=== PATIENT | female | born 1975 | race Caucasian/White ===

== ENCOUNTER → 2016-08-09 | Outpatient (CLI) | payer BC ==
--- NOTE | 2016-08-09 14:17 | MAMMOGRAPHY REPORT ---
BILATERAL DIGITAL SCREENING MAMMOGRAM WITH CAD: 08/09/2016 CLINICAL HISTORY: Patient presents for routine screening. S/P bilateral augmentation. TECHNIQUE: Current study was also evaluated with a Computer Aided Detection (CAD) system. Bilatera l CC and MLO views including implantviews were obtained. COMPARISON: Comparison is made to exams dated: 07/29/2013 mammogram, 06/05/2012 mammogram - [facility], 12/10/2011 mammogram, 10/08/2011 mammogram, and 10/05/2011 mammogram. BREAST COMPOSITION: The tissue of both breasts is heterogeneously dense, which may obscure small ma sses. FINDINGS: No suspicious masses, calcifications, or areas of architectural distortion are noted in e ither breast. There has been no significant interval change compared to prior exams. Bilateral subp ectoral saline implants are again noted. Asymmetry in the right superior breast on the MLO view is stable compared to prior exams. Bilateral benign-appearing calcifications are again noted. IMPRESSION: ACR BI-RADS CATEGORY 2: BENIGN There is no mammographic evidence of malignancy. A 1 year screening mammogram is recommended. The p atient will receive written notification of the results. Approximately 10% of breast cancers are not detected with mammography. A negative mammographic repor t should not delay biopsy if a clinically suggestive mass is present. Yvonne Hatch M.D. ah/:08/09/2016 12:47:21 Masticator: James SANTOS)(Pia), [facility] letter sent: Normal 1/2 BI-RADS Code: ACR BI-RADS Category 2: Benign
== END | disposition home or self-care (01) ==
LOC: C.MAMM 10:28
PROVIDERS: ATTEND Family Medicine
DX: Z12.31 Encounter for screening mammogram for malignant neoplasm of breast (principal); Z98.82 Breast implant status

== ENCOUNTER → 2017-03-14 | Outpatient (CLI) | payer BC ==
[~2017-03-14] MED LIST: MAGN250T22 PO
--- NOTE | 2017-03-14 11:52 | DIAGNOSTIC IMAGING REPORT ---
TRANSVAG-FEMALE PELVIS CLINICAL HISTORY: Pelvic pain. COMPARISON STUDY: No previous studies for comparison. FINDINGS: The uterus measures 10.3 x 5.4 x 6.6 cm. Endometrium measures 1.6 cm in thickness. Several nabothian cysts are incidentally noted. The right ovary measures 3 x 2.3 x 2.6 cm and contains a 1.6 cm complex cyst. The left ovary measures 3.3 x 1.8 x 2.3 cm. Color flow is identified within each ovary. There is trace free fluid within the pelvis. IMPRESSION: 1. 1.6 cm complex hypoechoic right ovarian lesion which could reflect a corpus luteal/hemorrhagic cyst. 2. No sonographic evidence of ovarian torsion. 3. Prominent endometrium, measuring 1.6 cm which could be correlated with the phase of menstrual cycle. 4. Trace fluid within pelvis which is likely physiologic. Electronically signed by: Cem Mueller M.D. 03/14/2017 11:50 AM Dictated Date/Time: 03/14/2017 11:47 AM
== END | disposition home or self-care (01) ==
LOC: C.ULTR 10:33
PROVIDERS: ATTEND Family Medicine
DX: R10.2 Pelvic and perineal pain (principal)

== ENCOUNTER → 2017-03-15 | Outpatient (CLI) | payer BC ==
[~2017-03-15] MED LIST changes: +OPTIRAY 300 IV PRN
--- NOTE | 2017-03-15 14:25 | DIAGNOSTIC IMAGING REPORT ---
IVP W/OR W/O TOMOGRAMS CLINICAL HISTORY: URINARY Frequency, pain COMPARISON STUDY: None. FINDINGS: [employer] image shows no renal, ureteral, or bladder calculi. Punctate calcification within the right deep pelvis is consistent with a phlebolith. Prior cholecystectomy. Moderate well-formed stool throughout the colon. Following the intravenous administration of contrast there is prompt and symmetric perfusion of the kidneys. The kidneys are normal in size and shape. No hydronephrosis. No suspicious filling defects seen within the opacified bilateral renal collecting systems, ureters, or bladder. No significant post void residual. IMPRESSION: Intravenous pyelogram within normal limits. Electronically signed by: Ryan Arciniega M.D. 03/15/2017 2:23 PM Dictated Date/Time: 03/15/2017 2:20 PM
== END | disposition home or self-care (01) ==
LOC: C.RAD 12:35
PROVIDERS: ATTEND Family Medicine
DX: R35.0 Frequency of micturition (principal); R39.89 Other symptoms and signs involving the genitourinary system

== ENCOUNTER → 2017-03-19 | Outpatient (CLI) | payer BC ==
[~2017-03-19] MED LIST changes: -OPTIRAY 300 IV PRN
== END | disposition home or self-care (01) ==
LOC: C.PAPS 08:35
PROVIDERS: ATTEND Physician Assistant
DX: Z01.419 Encounter for gynecological examination (general) (routine) without abnormal findings (principal)

== ENCOUNTER 2017-04-25 02:40 | Emergency (ER) | payer BC ==
[~2017-04-25] VITALS: Ht 157.5 cm; Wt 59.7 kg
[2017-04-25 02:43] VITALS: TEMP 36.4; Ht 157.5 cm; Wt 59.7 kg
[2017-04-25] MEDS ORDERED: KETOROLAC TROMETHAMINE 60 MG/2 ML VIAL IM STA (02:59)
[2017-04-25] MEDS ORDERED: MAGN250T22 PO (03:02)
--- NOTE | 2017-04-25 03:39 | EMERGENCY ROOM VISIT NOTE ---
History First contact with patient: 02:53 Chief Complaint: HEADACHE Stated Complaint: MIGRAINE History of Present Illness The patient is a 42 year old female who presents to the Emergency Room with complaints of a migraine headache which started yesterday. The patient states that she has hormone-induced migraines which occur every month on either the first or last day of her menstrual period. She states that she is not able to take NSAIDs orally due to a history of ulcers and typically sees her primary care provider for an injection of Toradol, which completely relieved her headache. She states that the headache started before bed and woke her up in the middle of the night. She rates her discomfort a 9/10. She states this is similar to previous migraines she has had. It is not the worst headache of her life. She denies any associated vomiting, numbness/weakness, blurred vision or slurred speech. She denies any recent illness or fevers/chills. Review of Systems A complete 10 point review of systems was reviewed with the patient with pertinent positives and negatives as per history of present illness. All else were negative. Social History Smoking Status: Never Smoker Marital Status: Housing Status: lives with family Occupation Status: employed Current/Historical Medications Scheduled Magnesium Oxide (Magnesium), 250 MG PO DAILY Physical Exam Vital Signs Date Time Temp Pulse Resp B/P (MAP) Pulse Ox O2 Delivery O2 Flow Rate FiO2 04/25/17 03:48 69 20 100/70 99 04/25/17 02:43 36.4 89 18 122/82 100 Room Air Physical Exam VITALS: Vitals are noted on the nurse's note and reviewed by myself. Vital signs stable. GENERAL: This is a 42-year-old female, in no acute distress, nondiaphoretic, well-developed well-nourished. HEAD: Normocephalic atraumatic. EARS: External auditory canals clear, tympanic membranes pearly schumacher without erythema or effusion bilaterally. EYES: Pupils equal round and reactive to light and accommodation. Conjunctivae without injection, sclerae without icterus. Extraocular movements intact. MOUTH: Mucous membranes moist. Tonsils are not enlarged. Pharynx without erythema or exudate. NECK: Supple without nuchal rigidity. No lymphadenopathy. HEART: Regular rate and rhythm without murmurs gallops or rubs. LUNGS: Clear to auscultation bilaterally without wheezes, rales or rhonchi. ABDOMEN: Soft, nontender. MUSCULOSKELETAL: Full range of motion throughout. Strength 5/5 throughout. NEURO: Patient was alert and oriented to person place and time. Normal sensation to light and sharp touch. No focal neurological deficits. Medical Decision & Procedures Medications Administered Medications (Trade) Dose Ordered Sig/Ramon Route Start Time Stop Time Status Last Admin Dose Admin Ketorolac Tromethamine (Toradol Inj) 60 mg NOW STAT IM 04/25/17 02:59 04/25/17 03:00 DC 04/25/17 03:27 60 MG Medical Decision The differential diagnosis includes acute intracranial bleed, meningitis, encephalitis, mass or mass effect, sinusitis, infection, tumor, headache, temporal arteritis and carbon monoxide exposure, and migraine. The patient was evaluated as above. She presents complaining of a headache which feels similar to previous headaches she has had in the past. She states she has these headaches every month when she has her menstrual period. She denies any new/concerning symptoms. She is given 60 mg Toradol IM with significant improvement of her headache and requested discharge home. The patient will follow-up with her primary care provider as needed. She verbalized understanding of my assessment and treatment plan was discharged home in good condition. Medication Reconcilliation Current Medication List: was personally reviewed by or Blood Pressure Screening Patient's blood pressure: Normal blood pressure Impression Primary Impression: Headache Departure Information Referrals Stan Brasher DO (PCP) Patient Instructions My [facility] Additional Instructions You have been treated in the Emergency Department for a Headache. For pain control, you can use the following [id number] medicines (if >12 yo): - Regular strength (325mg/tab) Tylenol (acetaminophen) 2 tabs every 4-6 hours as needed. Do not exceed 12 tablets in a 24 hour period. Avoid taking more than 4 grams (4000 mg) of Tylenol per day. This includes any other sources of acetaminophen you may take on a regular basis. - Regular strength (200 mg/tab) Advil (ibuprofen) 1-2 tabs every 4-6 hours as needed. Do not exceed a dose of 3200 mg per day. Follow-up with your primary care provider for further evaluation. Return to the Emergency Department if your current symptoms worsen despite treatment course outlined above, or if you develop any of the following symptoms : intractable pain despite aforementioned treatment course, visual disturbances , loss of vision, unilateral weakness or facial drooping, slurring of speech, loss of coordination, or loss of consciousness.
[2017-04-25 03:48] VITALS: BP 100/70; PULSE 69; O2SAT 99
== END 2017-04-25 03:49 | disposition home or self-care (01) ==
LOC: C.EDB 02:41
DX: R51 Headache (principal)

== ENCOUNTER 2018-10-28 16:31 | Observation (INO) ==
[2018-10-28] MEDS ORDERED: MoRPHine SULFATE 4 MG/ML 1 ML CARP\\VIAL IV STA (16:53)
[2018-10-28] MEDS ORDERED: ONDANSETRON INJ 2 MG/ML 2 ML VIAL IV STA ×2 (16:53→18:45)
[2018-10-28] MEDS ORDERED: KETOROLAC TROMETHAMINE 15 MG/ML VIAL IV STA (16:53)
[2018-10-28] MEDS ORDERED: SODIUM CHLORIDE 0.9% 1000ML 1,000 ML IV SCH (17:00)
--- NOTE | 2018-10-28 17:09 | XRay Report ---
SINGLE VIEW CHEST CLINICAL HISTORY: Atypical chest pain. FINDINGS: An AP, portable, upright chest radiograph is obtained. No prior studies are available for c omparison at the time of dictation. The examination is degraded by portable technique and patient rot ation. The cardiomediastinal silhouette is unremarkable. The lungs and pleural spaces are clear. No pneumothorax is seen. The bony thorax is grossly intact. Cholecystectomy clips are seen in the right upper quadrant. IMPRESSION: No active disease in the chest. Electronically signed by: Moe Bejarano M.D. 10/28/2018 5:08 PM
[2018-10-28 17:17] LABS: Eosinophils # (auto) 0.08 K/uL (0-0.5); Eosinophils % (auto) 1.2 %; Hematocrit (blood only) 42.7 % (37-47); Hemoglobin 14.8 g/dL (12.0-16.0); Immature Granulocytes # (auto) 0.01 K/uL (0.00-0.02); Immature Granulocytes % (auto) 0.1 %; Lymphocytes # (auto) 0.97 K/uL (1.2-3.4); Lymphocytes % (auto) 14.4 %; Mean Corpuscular Hgb Conc 34.7 g/dL (32-36); Mean Corpuscular Volume 87.9 fL (80-100); Mean Platelet Volume 9.2 fL (7.4-10.4); Monocytes # (auto) 0.44 K/uL (0.11-0.59); Monocytes % (auto) 6.5 %; Neutrophils # (auto) 5.23 K/uL (1.4-6.5); Neutrophils % (auto) 77.8 %; Platelet Count 222 K/uL (130-400); RDW Standard Deviation 41.8 fL (36.4-46.3); Red Blood Count 4.86 M/uL (4.2-5.4); White Blood Count 6.73 K/uL (4.8-10.8)
--- NOTE | 2018-10-28 17:18 | Emergency Department Note ---
Entered by Venessa Castro acting as a scribe for History of Present Illness General Chief complaint: Chest Pain Stated complaint: VOMITING, BACK PAIN, CHEST PAIN Time Seen by Provider: 10/28/18 16:41 Source: patient Mode of arrival: ambulatory Limitations: no limitations History of Present Illness Provider complaint: chest pain Onset (ago): hour(s) (this morning) Location: chest and left Radiation: back Pain Consistency: + intermittent Maximum Pain Intensity: 8 Quality: + sharp Exacerbated By: + other (deep breathing) Associated symptoms: + nausea/vomiting and + shortness of breath Treatments prior to arrival: other (Zofran) The patient is a 43 year old female who presents to the Emergency Room with complaints of an intermittent chest pain that began this morning. The patient reports that she has been vomiting and having episodes of diarrhea through last night and today. She states that she woke up this morning with an intermittent left-sided chest pain which she notes radiates to her back. She describes the pain as sharp and reports that it is exacerbated by deep breathing. She states that the pain onsets randomly. The patient notes that she recently returned from [place] and on the plane ride home, she had bilateral leg swelling which lasted 3 days. She also reports that she was up and walking during this plane ride as well. She states that she was on control but recently discontinued it. She notes that her boyfriend has had slightly similar flu-like symptoms. The patient reports that she has had a cholecystectomy performed. She states that she has been taking Zofran and it has helped her nausea. Home Medications Home Medications Medication Instructions Recorded Confirmed Type acetaminophen [Tylenol Extra 1,500 mg PO Q6H PRN 10/28/18 10/28/18 History Strength] esomeprazole magnesium [Nexium] 40 mg PO QAM 10/28/18 10/28/18 History lisdexamfetamine [Vyvanse] 50 mg PO QAM 10/28/18 10/28/18 History rizatriptan 10 mg PO DIRECTED PRN 10/28/18 10/28/18 History sumatriptan succinate 25 mg PO DIRECTED PRN 10/28/18 10/28/18 History zolpidem 5 mg PO HS 10/28/18 10/28/18 History Allergies Allergy/AdvReac Type Severity Reaction Status Date / Time Bactrim Allergy Mild RASH Verified 04/25/17 03:01 promethazine Allergy Mild CONVULSIONS Verified 10/28/18 17:31 sulfamethoxazole Allergy Mild RASH Verified 10/28/18 17:31 trimethoprim Allergy Mild RASH Verified 10/28/18 17:31 Past Med/Surg History Medical History Migraines (Chronic) Social History Communication Ability: Effective Stopping Builder Required: No Beliefs That Will Affect Care: None marital status: Single Current Living Situation: Family Feels Safe at Home: Yes Safety Concerns: Feels Safe At This Time Smoking Status: Never smoker Hx Alcohol Use: No Hx Substance Use: No Review of Systems See HPI for pertinent positives & negatives. and A total of 10 systems reviewed and were otherwise negative Physical Exam Vital Signs Vital Signs - 24 hr 10/28/18 16:33 10/28/18 16:50 10/28/18 17:00 Temperature 36.5 C Temperature Source Oral Sepsis Recent Fever Within 48 Hours No Sepsis New/Unexplained Change in Mental Status No Sepsis Action Taken by Nursing No Action Required Pulse Rate 75 92 H 82 Pulse Rate [Apical] Pulse Rate [Left Finger] Pulse Rate from SpO2 Sensor 92 H 81 Respiratory Rate 18 20 17 Respiratory Effort / Characteristics Non-Labored Respiratory Depth Normal Respiratory Pattern Regular Blood Pressure 146/101 H Blood Pressure [Left Arm] Blood Pressure Mean 116 Blood Pressure Mean [Left Arm] Blood Pressure Position Lying Pulse Oximetry 100 100 99 Oxygen Delivery Method Room Air 10/28/18 17:04 10/28/18 17:10 10/28/18 17:20 Temperature Temperature Source Sepsis Recent Fever Within 48 Hours Sepsis New/Unexplained Change in Mental Status Sepsis Action Taken by Nursing Pulse Rate 85 84 Pulse Rate [Apical] Pulse Rate [Left Finger] Pulse Rate from SpO2 Sensor 87 84 Respiratory Rate 21 15 Respiratory Effort / Characteristics Respiratory Depth Respiratory Pattern Blood Pressure Blood Pressure [Left Arm] Blood Pressure Mean Blood Pressure Mean [Left Arm] Blood Pressure Position Pulse Oximetry 97 99 100 Oxygen Delivery Method Room Air 10/28/18 17:48 10/28/18 17:49 10/28/18 17:50 Temperature Temperature Source Sepsis Recent Fever Within 48 Hours Sepsis New/Unexplained Change in Mental Status Sepsis Action Taken by Nursing Pulse Rate 77 78 Pulse Rate [Apical] 85 Pulse Rate [Left Finger] Pulse Rate from SpO2 Sensor 79 79 Respiratory Rate 12 14 15 Respiratory Effort / Characteristics Non-Labored Respiratory Depth Normal Respiratory Pattern Blood Pressure 112/71 Blood Pressure [Left Arm] 112/85 Blood Pressure Mean 84 Blood Pressure Mean [Left Arm] 94 Blood Pressure Position Pulse Oximetry 100 99 97 Oxygen Delivery Method Room Air 10/28/18 18:00 10/28/18 18:01 10/28/18 18:10 Temperature Temperature Source Sepsis Recent Fever Within 48 Hours Sepsis New/Unexplained Change in Mental Status Sepsis Action Taken by Nursing Pulse Rate 85 91 H 90 Pulse Rate [Apical] Pulse Rate [Left Finger] Pulse Rate from SpO2 Sensor 84 91 H 89 Respiratory Rate 32 H 32 H 22 Respiratory Effort / Characteristics Respiratory Depth Respiratory Pattern Blood Pressure 125/106 H Blood Pressure [Left Arm] Blood Pressure Mean 112 Blood Pressure Mean [Left Arm] Blood Pressure Position Pulse Oximetry 100 99 100 Oxygen Delivery Method 10/28/18 18:18 10/28/18 18:20 10/28/18 18:30 Temperature Temperature Source Sepsis Recent Fever Within 48 Hours Sepsis New/Unexplained Change in Mental Status Sepsis Action Taken by Nursing Pulse Rate 82 79 Pulse Rate [Apical] Pulse Rate [Left Finger] Pulse Rate from SpO2 Sensor 82 79 Respiratory Rate 38 H 24 19 Respiratory Effort / Characteristics Respiratory Depth Shallow Respiratory Pattern Tachypnea Blood Pressure 99/64 L Blood Pressure [Left Arm] Blood Pressure Mean 75 Blood Pressure Mean [Left Arm] Blood Pressure Position Pulse Oximetry 100 100 100 Oxygen Delivery Method Room Air 10/28/18 18:40 10/28/18 18:50 10/28/18 19:00 Temperature Temperature Source Sepsis Recent Fever Within 48 Hours Sepsis New/Unexplained Change in Mental Status Sepsis Action Taken by Nursing Pulse Rate 104 H 107 H 92 H Pulse Rate [Apical] Pulse Rate [Left Finger] Pulse Rate from SpO2 Sensor 108 H 93 H Respiratory Rate 26 H 31 H 21 Respiratory Effort / Characteristics Respiratory Depth Respiratory Pattern Blood Pressure 122/79 Blood Pressure [Left Arm] Blood Pressure Mean 93 Blood Pressure Mean [Left Arm] Blood Pressure Position Pulse Oximetry 98 94 Oxygen Delivery Method 10/28/18 19:19 10/28/18 19:20 10/28/18 19:21 Temperature Temperature Source Sepsis Recent Fever Within 48 Hours Sepsis New/Unexplained Change in Mental Status Sepsis Action Taken by Nursing Pulse Rate 88 86 85 Pulse Rate [Apical] Pulse Rate [Left Finger] Pulse Rate from SpO2 Sensor Respiratory Rate 22 11 L 11 L Respiratory Effort / Characteristics Respiratory Depth Respiratory Pattern Blood Pressure 109/74 Blood Pressure [Left Arm] Blood Pressure Mean 85 Blood Pressure Mean [Left Arm] Blood Pressure Position Pulse Oximetry Oxygen Delivery Method 10/28/18 19:30 10/28/18 19:40 10/28/18 19:50 Temperature Temperature Source Sepsis Recent Fever Within 48 Hours Sepsis New/Unexplained Change in Mental Status Sepsis Action Taken by Nursing Pulse Rate 93 H 88 82 Pulse Rate [Apical] Pulse Rate [Left Finger] Pulse Rate from SpO2 Sensor 94 H 87 81 Respiratory Rate 17 22 12 Respiratory Effort / Characteristics Respiratory Depth Respiratory Pattern Blood Pressure 108/70 Blood Pressure [Left Arm] Blood Pressure Mean 82 Blood Pressure Mean [Left Arm] Blood Pressure Position Pulse Oximetry 93 98 97 Oxygen Delivery Method 10/28/18 20:00 10/28/18 20:01 10/28/18 20:03 Temperature Temperature Source Sepsis Recent Fever Within 48 Hours Sepsis New/Unexplained Change in Mental Status Sepsis Action Taken by Nursing Pulse Rate 76 85 78 Pulse Rate [Apical] Pulse Rate [Left Finger] Pulse Rate from SpO2 Sensor 76 82 77 Respiratory Rate 12 12 12 Respiratory Effort / Characteristics Respiratory Depth Respiratory Pattern Blood Pressure 79/51 L 78/45 L 87/44 L Blood Pressure [Left Arm] Blood Pressure Mean 60 56 58 Blood Pressure Mean [Left Arm] Blood Pressure Position Pulse Oximetry 98 98 99 Oxygen Delivery Method 10/28/18 20:04 10/28/18 20:10 10/28/18 20:20 Temperature Temperature Source Sepsis Recent Fever Within 48 Hours Sepsis New/Unexplained Change in Mental Status Sepsis Action Taken by Nursing Pulse Rate 74 75 73 Pulse Rate [Apical] Pulse Rate [Left Finger] Pulse Rate from SpO2 Sensor 76 76 73 Respiratory Rate 12 15 12 Respiratory Effort / Characteristics Respiratory Depth Respiratory Pattern Blood Pressure Blood Pressure [Left Arm] Blood Pressure Mean Blood Pressure Mean [Left Arm] Blood Pressure Position Pulse Oximetry 99 100 99 Oxygen Delivery Method 10/28/18 20:30 10/28/18 20:40 10/28/18 20:43 Temperature Temperature Source Sepsis Recent Fever Within 48 Hours Sepsis New/Unexplained Change in Mental Status Sepsis Action Taken by Nursing Pulse Rate 73 85 88 Pulse Rate [Apical] Pulse Rate [Left Finger] Pulse Rate from SpO2 Sensor 73 84 80 Respiratory Rate 13 15 24 Respiratory Effort / Characteristics Respiratory Depth Respiratory Pattern Blood Pressure 107/59 L Blood Pressure [Left Arm] Blood Pressure Mean 75 Blood Pressure Mean [Left Arm] Blood Pressure Position Pulse Oximetry 100 99 93 Oxygen Delivery Method 10/28/18 20:44 10/28/18 20:50 10/28/18 21:00 Temperature Temperature Source Sepsis Recent Fever Within 48 Hours Sepsis New/Unexplained Change in Mental Status Sepsis Action Taken by Nursing Pulse Rate 87 80 74 Pulse Rate [Apical] Pulse Rate [Left Finger] Pulse Rate from SpO2 Sensor 81 80 75 Respiratory Rate 13 16 14 Respiratory Effort / Characteristics Respiratory Depth Respiratory Pattern Blood Pressure 99/66 L Blood Pressure [Left Arm] Blood Pressure Mean 77 Blood Pressure Mean [Left Arm] Blood Pressure Position Pulse Oximetry 96 98 Oxygen Delivery Method 10/28/18 21:10 10/28/18 21:20 10/28/18 21:30 Temperature Temperature Source Sepsis Recent Fever Within 48 Hours Sepsis New/Unexplained Change in Mental Status Sepsis Action Taken by Nursing Pulse Rate 86 79 77 Pulse Rate [Apical] Pulse Rate [Left Finger] Pulse Rate from SpO2 Sensor 111 H 78 77 Respiratory Rate 22 12 11 L Respiratory Effort / Characteristics Respiratory Depth Respiratory Pattern Blood Pressure Blood Pressure [Left Arm] Blood Pressure Mean Blood Pressure Mean [Left Arm] Blood Pressure Position Pulse Oximetry 94 95 95 Oxygen Delivery Method 10/28/18 21:40 10/28/18 21:48 10/28/18 22:49 Temperature 36.8 C Temperature Source Oral Sepsis Recent Fever Within 48 Hours Sepsis New/Unexplained Change in Mental Status Sepsis Action Taken by Nursing Pulse Rate 96 H 67 Pulse Rate [Apical] Pulse Rate [Left Finger] 68 Pulse Rate from SpO2 Sensor 93 H Respiratory Rate 11 L 12 18 Respiratory Effort / Characteristics Non-Labored Spontaneous Respiratory Depth Normal Respiratory Pattern Regular Blood Pressure 104/61 Blood Pressure [Left Arm] 83/53 L Blood Pressure Mean Blood Pressure Mean [Left Arm] 63 Blood Pressure Position Pulse Oximetry 96 100 96 Oxygen Delivery Method Room Air GENERAL: Patient is in mild distress secondary to pain. HEENT: No acute trauma, normocephalic atraumatic, mucous membranes moist, no nasal congestion, no scleral icterus. NECK: No stridor, no adenopathy, no meningismus, trachea is midline. LUNGS: Clear to auscultation bilaterally, no wheeze, no rhonchi, breath sounds equal. HEART: Without murmurs gallops or rubs, regular rate and rhythm. CHEST: Non-tender chest wall. No rash. ABDOMEN: Soft, bowel sounds positive, no hernias, no peritonitis. Moderately tender in the left upper quadrant. EXTREMITIES: No cyanosis or edema, full range of motion of all the joints without pain or difficulty, no signs for acute trauma. NEUROLOGIC: Oriented x 3, no acute motor or sensory deficits, no focal weakness. SKIN: No rash, no jaundice, no diaphoresis. Course 1644: The patient was evaluated in room B9, and a complete history and physical examination were performed. 1758: I updated the patient on her results. She states that her pain has now worsened. 1929: I updated the patient on her imaging results and on the treatment plan. 1937: I reviewed the patient's case with Dr. Segura - [facility] Hospitalist. She will evaluate the patient for further management. 2007: I reviewed the patient's case with Dr. Newell - General Surgery. He will come evaluate the patient. Administered Medications Potassium Chloride/Sodium Chloride (Normal Saline W/20 Meq Kcl) 20 meq in 1,000 mls @ 125 mls/hr IV .Q8H STEVE Stop: 11/27/18 23:14 Last Admin: 10/29/18 00:04 Dose: 125 mls/hr Documented by: [id number] Ioversol (Optiray 320 125ml) 115 ml IV ONCE PRN PRN Reason: Interaction Checking Stop: 11/01/18 19:10 Last Admin: 10/28/18 19:12 Dose: 115 ml Documented by: [id number] Zolpidem Tartrate (Ambien) 5 mg PO HS TSEVE Stop: 11/27/18 22:48 Last Admin: 10/29/18 00:05 Dose: Not Given Documented by: [id number] Discontinued Medications Diphenhydramine HCl (Benadryl) 25 mg IV NOW STA Stop: 10/28/18 19:20 Last Admin: 10/28/18 19:23 Dose: 25 mg Documented by: [id number] Hydromorphone HCl (Dilaudid) 0.5 mg IV NOW STA Stop: 10/28/18 17:58 Last Admin: 10/28/18 18:01 Dose: 0.5 mg Documented by: [id number] Hydromorphone HCl (Dilaudid) 1 mg IV NOW STA Stop: 10/28/18 18:15 Last Admin: 10/28/18 18:18 Dose: 1 mg Documented by: [id number] Hydromorphone HCl (Dilaudid) Confirm Administered Dose 1 mg .ROUTE .STK-MED ONE Stop: 10/28/18 18:16 Last Admin: 10/28/18 18:18 Dose: Not Given Documented by: [id number] Sodium Chloride (Nss 1000ml) 1,000 mls @ 999 mls/hr IV .Q1H1M STEVE Stop: 10/28/18 18:00 Last Infusion: 10/28/18 18:37 Dose: 0 mls/hr Documented by: [id number] Admin: 10/28/18 17:08 Dose: 999 mls/hr Documented by: [id number] Acetaminophen (Ofirmev) 1,000 mg in 100 mls @ 400 mls/hr IV NOW STA Stop: 10/28/18 18:11 Last Infusion: 10/28/18 18:37 Dose: 0 mls/hr Documented by: [id number] Admin: 10/28/18 18:03 Dose: 400 mls/hr Documented by: [id number] Prochlorperazine 10 mg/ (Syringe) 10 mls @ 5 mls/min IV ONE ONE Stop: 10/28/18 19:20 Last Admin: 10/28/18 19:25 Dose: 5 mls/min Documented by: [id number] Ranitidine HCl 50 mg/ Dextrose 102 mls @ 200 mls/hr IV Q8H [facility] Stop: 11/27/18 19:44 Last Infusion: 10/28/18 20:40 Dose: 0 mls/hr Documented by: [id number] Admin: 10/28/18 19:56 Dose: 200 mls/hr Documented by: [id number] Sodium Chloride (Nss 1000ml) 1,000 mls @ 999 mls/hr IV .Q1H1M ONE Stop: 10/28/18 21:04 Last Infusion: 10/28/18 21:06 Dose: 0 mls/hr Documented by: [id number] Admin: 10/28/18 20:07 Dose: 999 mls/hr Documented by: [id number] Ketorolac Tromethamine (Toradol) 15 mg IV NOW STA Stop: 10/28/18 16:54 Last Admin: 10/28/18 17:08 Dose: 15 mg Documented by: [id number] Morphine Sulfate (Morphine Sulfate) 4 mg IV NOW STA Stop: 10/28/18 16:54 Last Admin: 10/28/18 17:08 Dose: 4 mg Documented by: [id number] Ondansetron HCl (Zofran) 4 mg IV NOW STA Stop: 10/28/18 16:54 Last Admin: 10/28/18 17:09 Dose: 4 mg Documented by: [id number] Ondansetron HCl (Zofran) 4 mg IV NOW STA Stop: 10/28/18 18:46 Last Admin: 10/28/18 18:51 Dose: 4 mg Documented by: [id number] Prochlorperazine (Compazine) Confirm Administered Dose 10 mg .ROUTE .STK-MED ONE Stop: 10/28/18 19:22 Last Admin: 10/28/18 19:26 Dose: 10 mg Documented by: [id number] Medical Decision Making Differential Diagnosis Differential Diagnosis includes: musculoskeletal pain, hydronephrosis, UTI, splenic injury, pneumonia, PE, dehydration, electrolyte imbalance and AL. Home Medications Current Medication List: was personally reviewed by me Laboratory Data Attestation: I reviewed the patient's lab results. Result diagrams: 10/28/18 17:00 10/28/18 17:00 Lab Results 10/28/18 10/28/18 10/28/18 Range/Units 17:00 17:00 17:00 WBC 6.73 (4.8-10.8) K/uL RBC 4.86 (4.2-5.4) M/uL Hgb 14.8 (12.0-16.0) g/dL Hct 42.7 (37-47) % MCV 87.9 (80-100) fL MCH 30.5 (25-34) pg MCHC 34.7 (32-36) g/dL RDW Std Deviation 41.8 (36.4-46.3) fL RDW Coeff of Geraldo 13.0 (11.5-14.5) % Plt Count 222 (130-400) K/uL MPV 9.2 (7.4-10.4) fL Immature Gran % (Auto) 0.1 % Neut % (Auto) 77.8 % Lymph % (Auto) 14.4 % [place] % (Auto) 6.5 % Eos % (Auto) 1.2 % Baso % (Auto) 0.0 % Immature Gran # (Auto) 0.01 (0.00-0.02) K/uL Neut # (Auto) 5.23 (1.4-6.5) K/uL Lymph # (Auto) 0.97 L (1.2-3.4) K/uL [place] # (Auto) 0.44 (0.11-0.59) K/uL Eos # (Auto) 0.08 (0-0.5) K/uL Baso # (Auto) 0.00 (0-0.2) K/uL D-Dimer 1100 H* (0-500) ug/L FEU Sodium 137 (136-145) mmol/L Potassium 3.1 L (3.5-5.1) mmol/L Chloride 106 (98-107) mmol/L Carbon Dioxide 26 (21-32) mmol/L Anion Gap 5.0 (3-11) BUN 13 (7-18) mg/dl Creatinine 0.87 (0.6-1.2) mg/dl Est Cr Clr Drug Dosing 71.2 ml/min Est GFR ( Amer) 93.2 Est GFR (Non-Af Amer) 80.5 BUN/Creatinine Ratio 14.6 (10-20) Glucose 81 (70-99) mg/dl Calcium 8.5 (8.5-10.1) mg/dl Magnesium 2.0 (1.8-2.4) mg/dl Total Bilirubin 0.6 (0.2-1) mg/dl AST 17 (15-37) U/L ALT 20 (12-78) U/L Alkaline Phosphatase 55 (45-117) U/L Troponin I < 0.015 (0-0.045) ng/ml Total Protein 6.8 (6.4-8.2) gm/dl Albumin 3.2 L (3.4-5.0) gm/dl Globulin 3.6 (2.5-4.0) gm/dl Albumin/Globulin Ratio 0.9 (0.9-2) Lipase 60 L (73-393) U/L Urine Color Urine Appearance (Clear) Urine pH (4.5-7.5) Ur Specific [place] (1.000-1.030) Urine Protein (Negative) Urine Glucose (UA) (Negative) Urine Ketones (Negative) Urine Blood (Negative) Urine Nitrite (Negative) Urine Bilirubin (Negative) Urine Urobilinogen (Negative) Ur Leukocyte Esterase (Negative) Urine WBC (Auto) (0-5) /hpf Urine RBC (Auto) (0-4) /hpf U Hyaline Cast (Auto) (0-5) /lpf U Epithel Cells (Auto) (0-5) /lpf Urine Bacteria (Auto) (Negative) Ur Renal Epithelial Cell 10/28/18 Range/Units 17:00 WBC (4.8-10.8) K/uL RBC (4.2-5.4) M/uL Hgb (12.0-16.0) g/dL Hct (37-47) % MCV (80-100) fL MCH (25-34) pg MCHC (32-36) g/dL RDW Std Deviation (36.4-46.3) fL RDW Coeff of Geraldo (11.5-14.5) % Plt Count (130-400) K/uL MPV (7.4-10.4) fL Immature Gran % (Auto) % Neut % (Auto) % Lymph % (Auto) % [place] % (Auto) % Eos % (Auto) % Baso % (Auto) % Immature Gran # (Auto) (0.00-0.02) K/uL Neut # (Auto) (1.4-6.5) K/uL Lymph # (Auto) (1.2-3.4) K/uL [place] # (Auto) (0.11-0.59) K/uL Eos # (Auto) (0-0.5) K/uL Baso # (Auto) (0-0.2) K/uL D-Dimer (0-500) ug/L FEU Sodium (136-145) mmol/L Potassium (3.5-5.1) mmol/L Chloride (98-107) mmol/L Carbon Dioxide (21-32) mmol/L Anion Gap (3-11) BUN (7-18) mg/dl Creatinine (0.6-1.2) mg/dl Est Cr Clr Drug Dosing ml/min Est GFR ( Amer) Est GFR (Non-Af Amer) BUN/Creatinine Ratio (10-20) Glucose (70-99) mg/dl Calcium (8.5-10.1) mg/dl Magnesium (1.8-2.4) mg/dl Total Bilirubin (0.2-1) mg/dl AST (15-37) U/L ALT (12-78) U/L Alkaline Phosphatase (45-117) U/L Troponin I (0-0.045) ng/ml Total Protein (6.4-8.2) gm/dl Albumin (3.4-5.0) gm/dl Globulin (2.5-4.0) gm/dl Albumin/Globulin Ratio (0.9-2) Lipase (73-393) U/L Urine Color Dark Yellow Urine Appearance Clear (Clear) Urine pH 6.0 (4.5-7.5) Ur Specific [place] 1.038 H (1.000-1.030) Urine Protein Trace H (Negative) Urine Glucose (UA) Negative (Negative) Urine Ketones Trace H (Negative) Urine Blood 2+ H (Negative) Urine Nitrite Negative (Negative) Urine Bilirubin Negative (Negative) Urine Urobilinogen Negative (Negative) Ur Leukocyte Esterase Negative (Negative) Urine WBC (Auto) 1-5 (0-5) /hpf Urine RBC (Auto) 10-30 H (0-4) /hpf U Hyaline Cast (Auto) 1-5 (0-5) /lpf U Epithel Cells (Auto) >30 H (0-5) /lpf Urine Bacteria (Auto) 1+ H (Negative) Ur Renal Epithelial Cell Not Reportable Imaging Data Radiologist's Impression: Radiology results as stated below per my review and the radiologist's interpretation: SINGLE VIEW CHEST CLINICAL HISTORY: Atypical chest pain. FINDINGS: An AP, portable, upright chest radiograph is obtained. No prior studies are available for comparison at the time of dictation. The examination is degraded by portable technique and patient rotation. The cardiomediastinal silhouette is unremarkable. The lungs and pleural spaces are clear. No pneumot horax is seen. The bony thorax is grossly intact. Cholecystectomy clips are seen in the right upper quadrant. IMPRESSION: No active disease in the chest. Electronically signed by: Moe Bejarano M.D. 10/28/2018 5:08 PM US abdomen limited CLINICAL HISTORY: 43 years-old Female presenting with luq pain, check spleen and kidney. TECHNIQUE: Real-time grayscale and limited color Doppler ultrasound imaging of the abdomen limited to the left upper quadrant was performed. COMPARISON: None. FINDINGS: Spleen: Normal echogenicity and echotexture. The spleen is normal in size measuring 9.7 cm in maximal sagittal dimension. Left kidney: Normal in appearance without evidence of hydronephrosis. The left kidney is normal in size measuring 10.3 cm in maximal sagittal dimension. No sonographic evidence of calculi or mass. Ascites: None. Other: None. IMPRESSION: No splenomegaly. No left hydronephrosis. Electronically signed by: Acosta Ramirez M.D. 10/28/2018 5:[address] angio chest PE protocol CLINICAL HISTORY: 43 years-old Female presenting with atypical and left-sided chest pain. TECHNIQUE: Multidetector CT angiography of the chest was performed after administration of intravenous contrast. 3-D volumetric and/or maximum intensity projection (MIP) images were subsequently reconstructed for review. IV contrast: 115 mL of Optiray 320. One or more dose lowering techniques were used consistent with the principles of ALARA (as low as reasonably achievable), including automatic exposure control, mA or kV adjustment to individual patient size, and/or use of iterative reconstruction. COMPARISON: Chest x-ray from earlier the same day. CT DOSE (mGy.cm): The estimated cumulative dose is 486.68. FINDINGS: Wafer Fabrication Technician topogram: Cholecystectomy clips. Pulmonary vasculature: The study is suboptimal for the assessment of the pulmonary vascular tree secondary to respiratory motion artifact. No filling defect within the pulmonary arteries to suggest embolus. Main pulmonary artery is not enlarged. No flattening of the interventricular septum. No intracardiac filling defect. No reflux of contrast into the hepatic veins. Remaining chest: Soft tissues: Normal thyroid. Bilateral subpectoral breast implants. No axillary, supraclavicular, internal mammary, mediastinal, or hilar lymphadenopathy. Normal aorta. Normal heart size. No pericardial or pleural effusion. Upper abdomen normal. Lungs and airways: No pneumothorax. Central airways patent. Pulmonary arteries are not significantly enlarged relative to adjacent bronchi. Trace interlobular septal thickening. Mild mosaic attenuation. No focal infiltrate or nodule. Musculoskeletal: Normal osseous structures. IMPRESSION: 1. No evidence of pulmonary embolus. 2. Mild mosaic attenuation could suggest small airways disease. No other evidence of acute intrathoracic pathology. Electronically signed by: Acosta Ramirez M.D. 10/28/2018 7:[address] abd pelvis IV con only CLINICAL HISTORY: 43 years-old Female presenting with severe pain and vomiting, possible perforation or obstruction. TECHNIQUE: Multidetector CT of the abdomen and pelvis was performed after the administration of intravenous contrast. IV contrast: 115 mL of Optiray 320. One or more dose lowering techniques were used consistent with the principles of ALARA (as low as reasonably achievable), including automatic exposure control, mA or kV adjustment to individual patient size, and/or use of iterative reconstruction. COMPARISON: Left upper quadrant ultrasound from earlier the same day. CT DOSE (mGy.cm): The estimated cumulative dose is 486.68 mGy.cm. FINDINGS: Wafer Fabrication Technician topogram: Cholecystectomy clips. Lung bases: Normal heart size. No pericardial or pleural effusion. No focal infiltrate or nodule at the lung bases. Liver: Normal morphology. No liver lesion. Patent hepatic vasculature. Biliary: Mild biliary ductal prominence likely a reservoir effect in the post cholecystectomy state. Gallbladder surgically absent. Pancreas: Normal. Spleen: Normal. Adrenal glands: Normal. Kidneys and ureters: Excreted contrast likely accounts for the hyperdensities at the renal papillae bilaterally. As a result, limited evaluation for renal calculi. Renal parenchyma normal. No hydronephrosis. Ureters nondilated. No urothelial thickening or evidence to suggest a recently passed calculus. Bladder: Incompletely evaluated secondary to underdistention. Pelvic organs: Uterus and ovaries normal. A tampon is in place. Bowel: Normal appendix. No bowel obstruction. Small sliding type hiatal hernia. Mild apparent wall thickening of the descending and proximal horizontal portion of the duodenum. Peritoneal cavity: Trace free fluid in the pelvis likely physiologic. No free intraperitoneal gas. Lymph nodes: Few scattered subcentimeter mesenteric lymph nodes likely reactive. No pathologically enlarged lymph nodes in abdomen or pelvis. Vasculature: Aorta and IVC patent and normal in caliber. Abdominal wall: Bilateral subpectoral breast implants in place. Musculoskeletal: Normal. IMPRESSION: 1. Apparent wall thickening of the descending and horizontal portions of the duodenum suggests duodenitis, most likely infectious. 2. Small sliding-type hiatal hernia. 3. Postsurgical changes of cholecystectomy. 4. Trace free fluid in the pelvis likely physiologic. Electronically signed by: Acosta Ramirez M.D. 10/28/2018 7:28 PM ECG Data Attestation: I personally reviewed and interpreted this ECG as follows: Indication: chest pain Rate (beats per minute): 81 Rhythm: normal sinus Findings: + nonspecific-ST abn; no ST elevation Blood Pressure Blood Pressure Findings: Normal blood pressure Blood Pressure Disposition: did not require urgent referral MDM Narrative There is no leukocytosis or concerning anemia. Renal panel testing showed a mildly low potassium, no kidney failure. There was no hepatitis or pancreatitis. EKG showed a sinus rhythm, no acute ischemia. Cardiac enzyme testing x1 was not consistent with acute cardiac injury. Urinalysis showed some contamination, no infection. Chest film did not show free air, pneumonia or mediastinal widening. D-dimer testing was positive. Chest CT did not show evidence for PE, no pneumonia or aortic dissection. Abdominal and pelvis CT showed some duodenitis and a hiatal hernia. There was no free air or bowel obstruction. Patient was quite uncomfortable while here in the ED. She received IV saline, a second liter of IV saline was given when her blood pressure dropped. She received a few doses of IV Zofran for nausea. She was given IV Compazine and IV Benadryl for nausea. She received IV morphine, IV Tylenol and eventually IV Dilaudid for pain control. She was given IV Zantac for the duodenitis noticed on CT. The patient finally did have pain relief with the above treatment. She was resting comfortably. I did consult general surgery who felt that her p resentation may have been secondary to her hiatal hernia. The surgeon feels the hernia has now released and this is why the patient is feeling improved. I do think a hospital stay is warranted. I spoke to the patient and to the case packer and sealer. The on-call hospitalist was consulted. Of note, the patient's blood pressure is improving with the second liter of IV fluid. The lower blood pressure is likely secondary to dehydration coupled with all the medications administered here in the ED to control her symptoms. Impression & Plan Duodenitis, Abdominal pain, left upper quadrant, Hiatal hernia, Nausea, vomiting, and diarrhea Discharge Plan Visit Data *Final* Discharge Date/Time: 10/28/18 21:48 Chief Complaint: Chest Pain Stated Complaint: VOMITING, BACK PAIN, CHEST PAIN ED Provider: Moe Feliz Discharge Problem: Duodenitis, Abdominal pain, left upper quadrant, Hiatal hernia, Nausea, vomiting, and diarrhea Patient Disposition: Admitted As Inpatient Discharge Instructions Interventions: ED Discharge Assessment Last Done: 10/28/18 21:48 The scribe's documentation has been prepared under my direction and personally reviewed by me in its entirety. I confirm that the note above accurately reflects all work, treatment, procedures, and medical decision making performed by me.
[2018-10-28 17:35] LABS: Alanine Aminotransferase 20 U/L (12-78); Albumin Level 3.2 gm/dl (3.4-5.0); Aspartate Aminotransferase 17 U/L (15-37); BUN Creatinine Ratio 14.6 (10-20); Blood Urea Nitrogen 13 mg/dl (7-18); Calcium 8.5 mg/dl (8.5-10.1); Carbon Dioxide 26 mmol/L (21-32); Chloride 106 mmol/L (98-107); Creatinine Clr Calc Pharmacy 71.2 ml/min; Est GFR (African American) 93.2; Est GFR (Non-African American) 80.5; Glucose 81 mg/dl (70-99); Potassium 3.1 mmol/L (3.5-5.1); Sodium 137 mmol/L (136-145)
[2018-10-28 17:40] LABS: Albumin Globulin Ratio 0.9 (0.9-2); Alkaline Phosphatase 55 U/L (45-117); Bilirubin,Total 0.6 mg/dl (0.2-1); Globulin 3.6 gm/dl (2.5-4.0); Total Protein 6.8 gm/dl (6.4-8.2); Troponin I < 0.015 ng/ml (0-0.045)
--- NOTE | 2018-10-28 17:42 | Ultrasound Report ---
US abdomen limited CLINICAL HISTORY: 43 years-old Female presenting with luq pain, check spleen and kidney. TECHNIQUE: Real-time grayscale and limited color Doppler ultrasound imaging of the abdomen limited to the left upper quadrant was performed. COMPARISON: None. FINDINGS: Spleen: Normal echogenicity and echotexture. The spleen is normal in size measuring 9.7 cm in maximal sagittal dimension. Left kidney: Normal in appearance without evidence of hydronephrosis. The left kidney is normal in si ze measuring 10.3 cm in maximal sagittal dimension. No sonographic evidence of calculi or mass. Ascites: None. Other: None. IMPRESSION: No splenomegaly. No left hydronephrosis. Electronically signed by: Acosta Ramirez M.D. 10/28/2018 5:40 PM
[2018-10-28 17:46] LABS: D Dimer 1100 ug/L FEU (0-500)
[2018-10-28] MEDS ORDERED: ACETAMINOPHEN 1,000 MG/100 ML VIAL IV STA (17:57)
[2018-10-28] MEDS ORDERED: HYDROmorphone INJ 0.5 MG/0.5 ML SYR IV STA (17:57)
[2018-10-28] MEDS ORDERED: HYDROmorphone INJ 1 MG/ML SYRINGE IV STA (18:14)
[2018-10-28] MEDS ORDERED: HYDROmorphone INJ 1 MG/ML SYRINGE ONE (18:15)
[2018-10-28 18:29] LABS: Appearance Urine Clear (Clear); Bacteria Urine Automated 1+ (Negative); Bilirubin Urine Negative (Negative); Blood Urine 2+ (Negative); Color Urine Dark Yellow; Epithelial Cell Urine Auto >30 /lpf (0-5); Glucose Urine UA Negative (Negative); Ketones Urine Trace (Negative); Leukocyte Esterase Urine Negative (Negative); Nitrite Urine Negative (Negative); Protein Urine Trace (Negative); Specific Gravity Urine 1.038 (1.000-1.030); Urobilinogen Urine Negative (Negative)
[2018-10-28] MEDS ORDERED: OPTIRAY 320 125ml IV PRN (19:11)
[2018-10-28] MEDS ORDERED: DiphenhydrAMINE HCL 50 MG/ML VIAL IV STA (19:19)
[2018-10-28] MEDS ORDERED: PROCHLORPERAZINE 10 MG in SYRINGE 8 ML IV ONE (19:19)
[2018-10-28] MEDS ORDERED: PROCHLORPERAZINE 5 MG/ML 2 ML VIAL ONE (19:21)
--- NOTE | 2018-10-28 19:24 | CT Scan Report ---
CT angio chest PE protocol CLINICAL HISTORY: 43 years-old Female presenting with atypical and left-sided chest pain. TECHNIQUE: Multidetector CT angiography of the chest was performed after administration of intravenou s contrast. 3-D volumetric and/or maximum intensity projection (MIP) images were subsequently reconst ructed for review. IV contrast: 115 mL of Optiray 320. One or more dose lowering techniques were used consistent with the principles of ALARA (as low as reasonably achievable), including automatic expos ure control, mA or kV adjustment to individual patient size, and/or use of iterative reconstruction. COMPARISON: Chest x-ray from earlier the same day. CT DOSE (mGy.cm): The estimated cumulative dose is 486.68. FINDINGS: Property Management Coordinator topogram: Cholecystectomy clips. Pulmonary vasculature: The study is suboptimal for the assessment of the pulmonary vascular tree secondary to respiratory mo tion artifact. No filling defect within the pulmonary arteries to suggest embolus. Main pulmonary art bonita is not enlarged. No flattening of the interventricular septum. No intracardiac filling defect. No reflux of contrast into the hepatic veins. Remaining chest: Soft tissues: Normal thyroid. Bilateral subpectoral breast implants. No axillary, supraclavicular, in ternal mammary, mediastinal, or hilar lymphadenopathy. Normal aorta. Normal heart size. No pericardia l or pleural effusion. Upper abdomen normal. Lungs and airways: No pneumothorax. Central airways patent. Pulmonary arteries are not significantly enlarged relative to adjacent bronchi. Trace interlobular septal thickening. Mild mosaic attenuation. No focal infiltrate or nodule. Musculoskeletal: Normal osseous structures. IMPRESSION: 1. No evidence of pulmonary embolus. 2. Mild mosaic attenuation could suggest small airways disease. No other evidence of acute intrathor acic pathology. Electronically signed by: Acosta Ramirez M.D. 10/28/2018 7:22 PM
--- NOTE | 2018-10-28 19:29 | CT Scan Report ---
CT abd pelvis IV con only CLINICAL HISTORY: 43 years-old Female presenting with severe pain and vomiting, possible perforation or obstruction. TECHNIQUE: Multidetector CT of the abdomen and pelvis was performed after the administration of intra venous contrast. IV contrast: 115 mL of Optiray 320. One or more dose lowering techniques were used c onsistent with the principles of ALARA (as low as reasonably achievable), including automatic exposur e control, mA or kV adjustment to individual patient size, and/or use of iterative reconstruction. COMPARISON: Left upper quadrant ultrasound from earlier the same day. CT DOSE (mGy.cm): The estimated cumulative dose is 486.68 mGy.cm. FINDINGS: Printing Machine Operator topogram: Cholecystectomy clips. Lung bases: Normal heart size. No pericardial or pleural effusion. No focal infiltrate or nodule at t he lung bases. Liver: Normal morphology. No liver lesion. Patent hepatic vasculature. Biliary: Mild biliary ductal prominence likely a reservoir effect in the post cholecystectomy state. Gallbladder surgically absent. Pancreas: Normal. Spleen: Normal. Adrenal glands: Normal. Kidneys and ureters: Excreted contrast likely accounts for the hyperdensities at the renal papillae b ilaterally. As a result, limited evaluation for renal calculi. Renal parenchyma normal. No hydronephr osis. Ureters nondilated. No urothelial thickening or evidence to suggest a recently passed calculus. Bladder: Incompletely evaluated secondary to underdistention. Pelvic organs: Uterus and ovaries normal. A tampon is in place. Bowel: Normal appendix. No bowel obstruction. Small sliding type hiatal hernia. Mild apparent wall th ickening of the descending and proximal horizontal portion of the duodenum. Peritoneal cavity: Trace free fluid in the pelvis likely physiologic. No free intraperitoneal gas. Lymph nodes: Few scattered subcentimeter mesenteric lymph nodes likely reactive. No pathologically en larged lymph nodes in abdomen or pelvis. Vasculature: Aorta and IVC patent and normal in caliber. Abdominal wall: Bilateral subpectoral breast implants in place. Musculoskeletal: Normal. IMPRESSION: 1. Apparent wall thickening of the descending and horizontal portions of the duodenum suggests duode nitis, most likely infectious. 2. Small sliding-type hiatal hernia. 3. Postsurgical changes of cholecystectomy. 4. Trace free fluid in the pelvis likely physiologic. Electronically signed by: Acosta Ramirez M.D. 10/28/2018 7:28 PM
[2018-10-28] MEDS ORDERED: SODIUM CHLORIDE 0.9% 1000ML 1,000 ML IV ONE (20:04)
--- NOTE | 2018-10-28 20:57 | Surgery Consultation ---
Date of Consultation October 28, 2018 Assessment & Plan (1) Abdominal pain, left upper quadrant: pt is a 43 year-old female who presents to ER with LUQ pain, left chest pain, with nausea and vomiting, IMP: possible hiatal hernia caused pain, doudenitis Plan, RE: hospitalist will admit pt to hospital, IV fluid, NPO, consult GI possible EGD, or upper GI study tomorrow, if conform hiatal hernia, may consult chest surgeon D/W ER atending, please call me if any thing change, thanks, History of Present Illness History of Present Illness pt is a 43 year- old female who presents to ER with one day history left chest pain, back pain with nausea and vomiting, the pain is located at left chest and left upper abdomen, some diarrhea 2 days ago, pt denies fever, pt had IV pain medicine, now the pain is gone, no chest pain, no abdominal pain, pt had CT scan dx small hiatal hernia and doudenitis, Allergies Allergy/AdvReac Type Severity Reaction Status Date / Time Bactrim Allergy Mild RASH Verified 04/25/17 03:01 promethazine Allergy Mild CONVULSIONS Verified 10/28/18 17:31 sulfamethoxazole Allergy Mild RASH Verified 10/28/18 17:31 trimethoprim Allergy Mild RASH Verified 10/28/18 17:31 Home Medications Home Medications Medication Instructions Recorded Confirmed Type acetaminophen [Tylenol Extra 1,500 mg PO Q6H PRN 10/28/18 10/28/18 History Strength] esomeprazole magnesium [Nexium] 40 mg PO QAM 10/28/18 10/28/18 History lisdexamfetamine [Vyvanse] 50 mg PO QAM 10/28/18 10/28/18 History rizatriptan 10 mg PO DIRECTED PRN 10/28/18 10/28/18 History sumatriptan succinate 25 mg PO DIRECTED PRN 10/28/18 10/28/18 History zolpidem 5 mg PO HS 10/28/18 10/28/18 History Patient History Medical History Migraines (Chronic) Social History Preferred Language: Albanian marital status: Single Current Living Situation: Family Feels Safe at Home: Yes Smoking Status: Never smoker Review of Systems Constitutional: as per Subjective / HPI Ear, Nose, Mouth, Throat: as per Subjective / HPI Respiratory: as per Subjective / HPI Cardiovascular: as per Subjective / HPI Gastrointestinal: + abdominal pain lap jennifer Genitourinary (Female): as per Subjective / HPI Musculoskeletal: as per Subjective / HPI Neurologic: as per Subjective / HPI Psychiatric: as per Subjective / HPI Endocrine: as per Subjective / HPI Hematologic / Lymphatic: as per Subjective / HPI Physical Exam Vital Signs (Past 24 Hours): Last Vital Signs Temp 36.5 C 10/28/18 16:33 Pulse 88 10/28/18 20:43 Resp 24 10/28/18 20:43 BP 107/59 L 10/28/18 20:43 Pulse Ox 93 10/28/18 20:43 Constitutional: WD/WN, vitals as above well developed and well nourished Neck: trachea midline, no thyromegaly Respiratory: normal respiratory effort, lungs clear to auscultation normal respiratory effort Cardiovascular: RRR, no murmur, no edema Rate/Rhythm: regular rate and regular rhythm Heart Sounds: normal S1 and normal S2 Gastrointestinal (Abdomen): Inspection/Auscultation: abdomen normal to i nspection Percussion/Palpation: abdomen soft no tenderness, no distend, BS + Neurologic: awake Psychiatric: Orientation: alert and oriented x 3 Results & Data Laboratory Results Abnormal lab results 10/28/18 10/28/18 10/28/18 Range/Units 17:00 17:00 17:00 Lymph # (Auto) 0.97 L (1.2-3.4) K/uL D-Dimer 1100 H* (0-500) ug/L FEU Potassium 3.1 L (3.5-5.1) mmol/L Albumin 3.2 L (3.4-5.0) gm/dl Lipase 60 L (73-393) U/L Ur Specific [place] (1.000-1.030) Urine Protein (Negative) Urine Ketones (Negative) Urine Blood (Negative) Urine RBC (Auto) (0-4) /hpf U Epithel Cells (Auto) (0-5) /lpf Urine Bacteria (Auto) (Negative) 10/28/18 Range/Units 17:00 Lymph # (Auto) (1.2-3.4) K/uL D-Dimer (0-500) ug/L FEU Potassium (3.5-5.1) mmol/L Albumin (3.4-5.0) gm/dl Lipase (73-393) U/L Ur Specific [place] 1.038 H (1.000-1.030) Urine Protein Trace H (Negative) Urine Ketones Trace H (Negative) Urine Blood 2+ H (Negative) Urine RBC (Auto) 10-30 H (0-4) /hpf U Epithel Cells (Auto) >30 H (0-5) /lpf Urine Bacteria (Auto) 1+ H (Negative) Diagnostic Findings CT abd pelvis IV con only CLINICAL HISTORY: 43 years-old Female presenting with severe pain and vomiting, possible perforation or obstruction. TECHNIQUE: Multidetector CT of the abdomen and pelvis was performed after the administration of intravenous contrast. IV contrast: 115 mL of Optiray 320. One or more dose lowering techniques were used consistent with the principles of ALARA (as low as reasonably achievable), including automatic exposure control, mA or kV adjustment to individual patient size, and/or use of iterative reconstruction. COMPARISON: Left upper quadrant ultrasound from earlier the same day. CT DOSE (mGy.cm): The estimated cumulative dose is 486.68 mGy.cm. FINDINGS: Lay Out Drafter topogram: Cholecystectomy clips. Lung bases: Normal heart size. No pericardial or pleural effusion. No focal infiltrate or nodule at the lung bases. Liver: Normal morphology. No liver lesion. Patent hepatic vasculature. Biliary: Mild biliary ductal prominence likely a reservoir effect in the post cholecystectomy state. Gallbladder surgically absent. Pancreas: Normal. Spleen: Normal. Adrenal glands: Normal. Kidneys and ureters: Excreted contrast likely accounts for the hyperdensities at the renal papillae bilaterally. As a result, limited evaluation for renal calculi. Renal parenchyma normal. No hydronephrosis. Ureters nondilated. No urothelial thickening or evidence to suggest a recently passed calculus. Bladder: Incompletely evaluated secondary to underdistention. Pelvic organs: Uterus and ovaries normal. A tampon is in place. Bowel: Normal appendix. No bowel obstruction. Small sliding type hiatal hernia. Mild apparent wall thickening of the descending and proximal horizontal portion of the duodenum. Peritoneal cavity: Trace free fluid in the pelvis likely physiologic. No free intraperitoneal gas. Lymph nodes: Few scattered subcentimeter mesenteric lymph nodes likely reactive. No pathologically enlarged lymph nodes in abdomen or pelvis. Vasculature: Aorta and IVC patent and normal in caliber. Abdominal wall: Bilateral subpectoral breast implants in place. Musculoskeletal: Normal. IMPRESSION: 1. Apparent wall thickening of the descending and horizontal portions of the duodenum suggests duodenitis, most likely infectious. 2. Small sliding-type hiatal hernia. 3. Postsurgical changes of cholecystectomy. 4. Trace free fluid in the pelvis likely physiologic. CT angio chest PE protocol CLINICAL HISTORY: 43 years-old Female presenting with atypical and left-sided chest pain. TECHNIQUE: Multidetector CT angiography of the chest was performed after administration of intravenous contrast. 3-D volumetric and/or maximum intensity projection (MIP) images were subsequently reconstructed for review. IV contrast: 115 mL of Optiray 320. One or more dose lowering techniques were used consistent with the principles of ALARA (as low as reasonably achievable), including automatic exposure control, mA or kV adjustment to individual patient size, and/or use of iterative reconstruction. COMPARISON: Chest x-ray from earlier the same day. CT DOSE (mGy.cm): The estimated cumulative dose is 486.68. FINDINGS: Lay Out Drafter topogram: Cholecystectomy clips. Pulmonary vasculature: The study is suboptimal for the assessment of the pulmonary vascular tree secondary to respiratory motion artifact. No filling defect within the pulmonary arteries to suggest embolus. Main pulmonary artery is not enlarged. No flattening of the interventricular septum. No intracardiac filling defect. No reflux of contrast into the hepatic veins. Remaining chest: Soft tissues: Normal thyroid. Bilateral subpectoral breast implants. No axillary, supraclavicular, internal mammary, mediastinal, or hilar lymphadenopathy. Normal aorta. Normal heart size. No pericardial or pleural effusion. Upper abdomen normal. Lungs and airways: No pneumothorax. Central airways patent. Pulmonary arteries are not significantly enlarged relative to adjacent bronchi. Trace interlobular septal thickening. Mild mosaic attenuation. No focal infiltrate or nodule. Musculoskeletal: Normal osseous structures. IMPRESSION: 1. No evidence of pulmonary embolus. 2. Mild mosaic attenuation could suggest small airways disease. No other evidence of acute intrathoracic pathology. US abdomen limited CLINICAL HISTORY: 43 years-old Female presenting with luq pain, check spleen and kidney. TECHNIQUE: Real-time grayscale and limited color Doppler ultrasound imaging of the abdomen limited to the left upper quadrant was performed. COMPARISON: None. FINDINGS: Spleen: Normal echogenicity and echotexture. The spleen is normal in size measuring 9.7 cm in maximal sagittal dimension. Left kidney: Normal in appearance without evidence of hydronephrosis. The left kidney is normal in size measuring 10.3 cm in maximal sagittal dimension. No sonographic evidence of calculi or mass. Ascites: None. Other: None. IMPRESSION: No splenomegaly. No left hydronephrosis.
--- NOTE | 2018-10-28 21:39 | History & Physical Report ---
Date of Service October 28, 2018 Assessment & Plan (1) Hiatal hernia: 43-year-old female with 2 days of viral GI symptoms including abdominal pain and vomiting/diarrhea presents with concerns of epigastric/left-sided chest pain. Hiatal hernia in the setting of viral gastroenteritis On CT the patient was found to have a hiatal hernia, was seen by surgery in the ED who believe that her pain was caused by worsening of the hiatal hernia with vomiting Recommend barium swallow tomorrow morning Continue pain control, NPO, antiemetics Continue IV fluids Duodenitis on CT in the setting of viral gastroenteritis Ordered flu swab Treating supportively Consider GI consult and EGD if symptoms persist or worsen Other medical conditions include ADHD, history of migraines, sleep disorderinsomnia FEN -NS + K 110 cc/hr -NPO DVT ppx -SCD, ambulate Code -Full (2) Duodenitis: (3) Abdominal pain, left upper quadrant: (4) Nausea, vomiting, and diarrhea: (5) Migraines: History of Present Illness Primary Care Provider: Stacey Brasher 43-year-old female with a past medical history of cholecystectomy presents with epigastric/chest pain and vomiting. She states that she began to vomit yesterday afternoon and then she woke up this morning with pain right below her sternum and radiating underneath her rib cage, and described it as more predominant on the left side. She says the pain was very severe and was sharp in nature. She says that she has vomited at least 8 times over the past 2 days, nonbloody. She is also had loose stools, nonbloody. She also endorses body aches, joint aches, chills for this period of time. She states that her boyfrie nd was sick with a similar viral illness. Patient has had her flu shot this season. She reports recent travel to [place] 3 weeks ago. She reports eating at a buffet on Saturday evening. Allergies Allergy/AdvReac Type Severity Reaction Status Date / Time Bactrim Allergy Mild RASH Verified 04/25/17 03:01 promethazine Allergy Mild CONVULSIONS Verified 10/28/18 17:31 sulfamethoxazole Allergy Mild RASH Verified 10/28/18 17:31 trimethoprim Allergy Mild RASH Verified 10/28/18 17:31 Home Medications Home Medications Medication Instructions Recorded Confirmed Type acetaminophen [Tylenol Extra 1,500 mg PO Q6H PRN 10/28/18 10/28/18 History Strength] esomeprazole magnesium [Nexium] 40 mg PO QAM 10/28/18 10/28/18 History lisdexamfetamine [Vyvanse] 50 mg PO QAM 10/28/18 10/28/18 History rizatriptan 10 mg PO DIRECTED PRN 10/28/18 10/28/18 History sumatriptan succinate 25 mg PO DIRECTED PRN 10/28/18 10/28/18 History zolpidem 5 mg PO HS 10/28/18 10/28/18 History Past Med/Surg History Medical History Migraines (Chronic) Social History Preferred Language: Marshallese marital status: Single Current Living Situation: Family Feels Safe at Home: Yes Smoking Status: Never smoker Review of Systems All systems reviewed & are unremarkable except as noted in HPI & below Physical Exam Vital Signs (Past 24 Hours): Last Vital Signs Temp 36.5 C 10/28/18 16:33 Pulse 88 10/28/18 20:43 Resp 24 10/28/18 20:43 BP 107/59 L 10/28/18 20:43 Pulse Ox 93 10/28/18 20:43 Constitutional: WD/WN, vitals as above Eyes: PERRL, conjunctivae normal, anicteric sclerae ENMT: external ear and nose normal, oropharynx normal Neck: trachea midline, no thyromegaly Respiratory: normal respiratory effort, lungs clear to auscultation Cardiovascular: RRR, no murmur, no edema Gastrointestinal (Abdomen): normal bowel sounds, soft, nontender, no hepatosplenomegaly Musculoskeletal: no cyanosis or clubbing, extremities motor strength 5/5 Skin: no rashes, warm and dry Neurologic: patellar DTR's 2+ bilat, sensation intact Psychiatric: A+Ox3, euthymic affect Results & Data Laboratory Results Laboratory Last Values WBC 6.73 K/uL (4.8-10.8) 10/28/18 17:00 RBC 4.86 M/uL (4.2-5.4) 10/28/18 17:00 Hgb 14.8 g/dL (12.0-16.0) 10/28/18 17:00 Hct 42.7 % (37-47) 10/28/18 17:00 MCV 87.9 fL (80-100) 10/28/18 17:00 MCH 30.5 pg (25-34) 10/28/18 17:00 MCHC 34.7 g/dL (32-36) 10/28/18 17:00 RDW Std Deviation 41.8 fL (36.4-46.3) 10/28/18 17:00 RDW Coeff of Geraldo 13.0 % (11.5-14.5) 10/28/18 17:00 Plt Count 222 K/uL (130-400) 10/28/18 17:00 MPV 9.2 fL (7.4-10.4) 10/28/18 17:00 Immature Gran % (Auto) 0.1 % 10/28/18 17:00 Neut % (Auto) 77.8 % 10/28/18 17:00 Lymph % (Auto) 14.4 % 10/28/18 17:00 [place] % (Auto) 6.5 % 10/28/18 17:00 Eos % (Auto) 1.2 % 10/28/18 17:00 Baso % (Auto) 0.0 % 10/28/18 17:00 Immature Gran # (Auto) 0.01 K/uL (0.00-0.02) 10/28/18 17:00 Neut # (Auto) 5.23 K/uL (1.4-6.5) 10/28/18 17:00 Lymph # (Auto) 0.97 K/uL (1.2-3.4) L 10/28/18 17:00 [place] # (Auto) 0.44 K/uL (0.11-0.59) 10/28/18 17:00 Eos # (Auto) 0.08 K/uL (0-0.5) 10/28/18 17:00 Baso # (Auto) 0.00 K/uL (0-0.2) 10/28/18 17:00 D-Dimer 1100 ug/L FEU (0-500) H* 10/28/18 17:00 Sodium 137 mmol/L (136-145) 10/28/18 17:00 Potassium 3.1 mmol/L (3.5-5.1) L 10/28/18 17:00 Chloride 106 mmol/L (98-107) 10/28/18 17:00 Carbon Dioxide 26 mmol/L (21-32) 10/28/18 17:00 Anion Gap 5.0 (3-11) 10/28/18 17:00 BUN 13 mg/dl (7-18) 10/28/18 17:00 Creatinine 0.87 mg/dl (0.6-1.2) 10/28/18 17:00 Est Cr Clr Drug Dosing 71.2 ml/min 10/28/18 17:00 Est GFR ( Amer) 93.2 10/28/18 17:00 Est GFR (Non-Af Amer) 80.5 10/28/18 17:00 BUN/Creatinine Ratio 14.6 (10-20) 10/28/18 17:00 Glucose 81 mg/dl (70-99) 10/28/18 17:00 Calcium 8.5 mg/dl (8.5-10.1) 10/28/18 17:00 Magnesium 2.0 mg/dl (1.8-2.4) 10/28/18 17:00 Total Bilirubin 0.6 mg/dl (0.2-1) 10/28/18 17:00 AST 17 U/L (15-37) 10/28/18 17:00 ALT 20 U/L (12-78) 10/28/18 17:00 Alkaline Phosphatase 55 U/L (45-117) 10/28/18 17:00 Troponin I < 0.015 ng/ml (0-0.045) 10/28/18 17:00 Total Protein 6.8 gm/dl (6.4-8.2) 10/28/18 17:00 Albumin 3.2 gm/dl (3.4-5.0) L 10/28/18 17:00 Globulin 3.6 gm/dl (2.5-4.0) 10/28/18 17:00 Albumin/Globulin Ratio 0.9 (0.9-2) 10/28/18 17:00 Lipase 60 U/L (73-393) L 10/28/18 17:00 Urine Color Dark Yellow 10/28/18 17:00 Urine Appearance Clear (Clear) 10/28/18 17:00 Urine pH 6.0 (4.5-7.5) 10/28/18 17:00 Ur Specific [place] 1.038 (1.000-1.030) H 10/28/18 17:00 Urine Protein Trace (Negative) H 10/28/18 17:00 Urine Glucose (UA) Negative (Negative) 10/28/18 17:00 Urine Ketones Trace (Negative) H 10/28/18 17:00 Urine Blood 2+ (Negative) H 10/28/18 17:00 Urine Nitrite Negative (Negative) 10/28/18 17:00 Urine Bilirubin Negative (Negative) 10/28/18 17:00 Urine Urobilinogen Negative (Negative) 10/28/18 17:00 Ur Leukocyte Esterase Negative (Negative) 10/28/18 17:00 Urine WBC (Auto) 1-5 /hpf (0-5) 10/28/18 17:00 Urine RBC (Auto) 10-30 /hpf (0-4) H 10/28/18 17:00 U Hyaline Cast (Auto) 1-5 /lpf (0-5) 10/28/18 17:00 U Epithel Cells (Auto) >30 /lpf (0-5) H 10/28/18 17:00 Urine Bacteria (Auto) 1+ (Negative) H 10/28/18 17:00 Ur Renal Epithelial Cell Not Reportable 10/28/18 17:[address] Scan Report Patient: ELANA UNDERWOOD Date: 10/28/18 MR#: [id number]: [address] [place] [address], [id number] Acct ID:[id number]: Date: 1975[facility] Zip: [place] [address] Age: 43Location: ED Sex: F Room/Bed: Att Phy: Diagnosis: VOMITING, BACK PAIN, CHEST PAIN Lauren Phy: Stacey Brasher, DOService Date: 10/28/18 Fam Phy: Interpreting Phy: Acosta Ramirez MD Admit Phy: Ordering Phy: Moe Feliz M.D. cc: ~ CT abd pelvis IV con only CLINICAL HISTORY: 43 years-old Female presenting with severe pain and vomiting, possible perforation or obstruction. TECHNIQUE: Multidetector CT of the abdomen and pelvis was performed after the administration of intravenous contrast. IV contrast: 115 mL of Optiray 320. One or more dose lowering techniques were used consistent with the principles of ALARA (as low as reasonably achievable), including automatic exposure control, mA or kV adjustment to individual patient size, and/or use of iterative reconstruction. COMPARISON: Left upper quadrant ultrasound from earlier the same day. CT DOSE (mGy.cm): The estimated cumulative dose is 486.68 mGy.cm. FINDINGS: Paving [employer] Surfacing Labourer topogram: Cholecystectomy clips. Lung bases: Normal heart size. No pericardial or pleural effusion. No focal infiltrate or nodule at the lung bases. Liver: Normal morphology. No liver lesion. Patent hepatic vasculature. Biliary: Mild biliary ductal prominence likely a reservoir effect in the post cholecystectomy state. Gallbladder surgically absent. Pancreas: Normal. Spleen: Normal. Adrenal glands: Normal. Kidneys and ureters: Excreted contrast likely accounts for the hyperdensities at the renal papillae bilaterally. As a result, limited evaluation for renal calculi. Renal parenchyma normal. No hydronephrosis. Ureters nondilated. No urothelial thickening or evidence to suggest a recently passed calculus. Bladder: Incompletely evaluated secondary to underdistention. Pelvic organs: Uterus and ovaries normal. A tampon is in place. Bowel: Normal appendix. No bowel obstruction. Small sliding type hiatal hernia. Mild apparent wall thickening of the descending and proximal horizontal portion of the duodenum. Peritoneal cavity: Trace free fluid in the pelvis likely physiologic. No free intraperitoneal gas. Lymph nodes: Few scattered subcentimeter mesenteric lymph nodes likely reactive. No pathologically enlarged lymph nodes in abdomen or pelvis. Vasculature: Aorta and IVC patent and normal in caliber. Abdominal wall: Bilateral subpectoral breast implants in place. Musculoskeletal: Normal. IMPRESSION: 1. Apparent wall thickening of the descending and horizontal portions of the duodenum suggests duodenitis, most likely infectious. 2. Small sliding-type hiatal hernia. 3. Postsurgical changes of cholecystectomy. 4. Trace free fluid in the pelvis likely physiologic. [facility], [place] [phone] Ultrasound Report Patient: ELANA UNDERWOOD Date: 10/28/18 MR#: [id number]: [address] [place] [address], [id number] Acct ID:[id number]: Date: 1975[facility] Zip: [place] [address] Age: 43Location: ED Sex: F Room/Bed: Att Phy: Diagnosis: VOMITING, BACK PAIN, CHEST PAIN Lauren Phy: Stacey Brasher, DOService Date: 10/28/18 [facility] Phy: Interpreting Phy: Acosta Ramirez MD Admit Phy: Ordering Phy: Moe Feliz M.D. cc: ~ US abdomen limited CLINICAL HISTORY: 43 years-old Female presenting with luq pain, check spleen and kidney. TECHNIQUE: Real-time grayscale and limited color Doppler ultrasound imaging of the abdomen limited to the left upper quadrant was performed. COMPARISON: None. FINDINGS: Spleen: Normal echogenicity and echotexture. The spleen is normal in size measuring 9.7 cm in maximal sagittal dimension. Left kidney: Normal in appearance without evidence of hydronephrosis. The left kidney is normal in size measuring 10.3 cm in maximal sagittal dimension. No sonographic evidence of calculi or mass. Ascites: None. Other: None. IMPRESSION: No splenomegaly. No left hydronephrosis. Electronically signed by: Acosta Ramirez M.D. 10/28/2018 5:40 PM Dictated: 10/28/18 1739 Transcribed: 10/28/18 1739 Code Status & VTE Plan Code Status full VTE Prophylaxis Plan VTE Prophylaxis will be ordered: No Supervising Physician Co-Signing Physician Notes Patient seen and examined, chart reviewed, case discussed with Dr. Hamm and I agree with his assessment and plan as above. Briefly, patient is a 43yo female with recent gastroenteritis symptoms presenting with severe epigastric and LUQ pain. CT abd performed revealed duodenitis and hiatal hernia. Patient evaluated by surgery in ER. Pain thought to be secondary to exacerbation of hiatal hernia in setting of vomiting. No surgical indications at this time. Patient received multiple doses of pain medication and anti-emetics in the ER with resolution of symptoms. She is presently feeling tired but reports that her pain and nausea have completely resolved On exam she is afebrile, HD stable, non-toxic HEENT: MMM, neck supple Heart: +S1/S2, regular, no m/r/g Lungs: CTA Abd: +BS, soft, NT/ND Ext: no edema Labs and images reviewed Assessment/Plan: 43you female with recent sympoms most consistent with gastroenteritis, subsequent development of severe epigastric pain requiring multiple doses of pain medication and anti-emetics. CT with suggestion of duodenitis, hiatal hernia. No obstruction, no perforation or free air. Pain thought to be secondary of worsening hiatal hernia in setting of frequent vomiting -Observation to medical floor -Continue pain and nausea control PRN -Protonix daily -Barium swallow in AM -Consider GI consult pending results and clinical status -Remainder of plan as above Resident Activity Tracking Resident Involvement: Resident Care Provided Care Provided: Adult Hospital Medicine
[2018-10-28] MEDS ORDERED: MAGNESIUM HYDROXIDE SUSP 30 ML UDC PO PRN (22:49)
[2018-10-28] MEDS ORDERED: MoRPHine SULFATE 2 MG/ML CARP IV PRN (22:49)
[2018-10-28] MEDS ORDERED: ACETAMINOPHEN 325 MG TAB PO PRN (22:49)
[2018-10-28] MEDS ORDERED: ACETAMINOPHEN 1,000 MG/100 ML VIAL IV PRN (22:49)
[2018-10-28] MEDS ORDERED: ONDANSETRON INJ 2 MG/ML 2 ML VIAL IV PRN (22:49)
[2018-10-28] MEDS ORDERED: ALUMINUM/MAGNESIUM SUSP 30 ML UDC PO PRN (22:49)
[2018-10-28] MEDS ORDERED: POLYETHYLENE (MIRALAX) 17 GM PACK PO PRN (22:49)
[2018-10-28] MEDS ORDERED: ZOLPIDEM TARTRATE 5 MG TAB PO SCH (22:49)
[2018-10-29] MEDS: NSS + 20MEQ KCL 20 MEQ/1,000 ML BAG IV SCH ×2 (00:04→08:00)
[2018-10-29 06:19] LABS: Eosinophils % (auto) 2.8 %; Hematocrit (blood only) 33.2 % (37-47); Hemoglobin 11.2 g/dL (12.0-16.0); Immature Granulocytes # (auto) 0.01 K/uL (0.00-0.02); Immature Granulocytes % (auto) 0.3 %; Lymphocytes # (auto) 1.14 K/uL (1.2-3.4); Lymphocytes % (auto) 31.8 %; Mean Corpuscular Hgb Conc 33.7 g/dL (32-36); Mean Platelet Volume 9.2 fL (7.4-10.4); Monocytes # (auto) 0.28 K/uL (0.11-0.59); Monocytes % (auto) 7.8 %; Neutrophils # (auto) 2.05 K/uL (1.4-6.5); Neutrophils % (auto) 57.3 %; Platelet Count 150 K/uL (130-400); RDW Coefficient of Variation 13.1 % (11.5-14.5); RDW Standard Deviation 42.9 fL (36.4-46.3); Red Blood Count 3.73 M/uL (4.2-5.4); White Blood Count 3.58 K/uL (4.8-10.8)
[2018-10-29 06:35] LABS: Calcium 7.3 mg/dl (8.5-10.1); Creatinine Clr Calc Pharmacy 116.9 ml/min; Est GFR (African American) 132.9; Est GFR (Non-African American) 114.7; Potassium 3.8 mmol/L (3.5-5.1)
[2018-10-29] MEDS ORDERED: FAMOTIDINE 20 MG in SYRINGE 3 ML IV SCH (09:00)
--- NOTE | 2018-10-29 10:38 | Fluoroscopy Report ---
FL barium swallow CLINICAL HISTORY: hiatal hernia, abdominal pain/vomitingdysphagia COMPARISON STUDY: None FLUOROSCOPY TIME: 1.7 minutes NUMBER OF FLUOROSCOPIC IMAGES: 25 FINDINGS: Patient initiates swallowing function well. Esophagus is normal in course and caliber. Ther e is a small hiatal hernia. Mild findings of gastroesophageal reflux. Barium tablet passed easily to the stomach. IMPRESSION: 1. Small hiatal hernia. 2. Mild gastroesophageal reflux. 3. Otherwise normal study. The above report was generated using voice recognition software. It may contain grammatical, syntax or spelling errors. Electronically signed by: Red Kimbrough M.D. 10/29/2018 10:37 AM
--- NOTE | 2018-10-29 11:53 | Family Medicine Progress Note ---
Date of Service October 29, 2018 Assessment & Plan (1) Hiatal hernia: 43-year-old female with 2 days of viral GI symptoms presenting with intractable n/v/d and abdominal pain. Abdominal pain 2/2 gastroenteritis/duodenitis complicated by emesis and hiatal hernia seen on CT CT with suggestion of duodenitis, hiatal hernia. No obstruction, no perforation or free air. Pain thought to be secondary of worsening hiatal hernia in setting of frequent vomiting -Pt reports recent history of travel to [place] 3 weeks prior, and feeling increased postprandial fullness. N/V/D only began 2 days ago, reports her boyfriend was also sick with similar illness. -is on daily PPI for h/o "ulcer" diagnosed clinically. Told by PCP to restart prevacid when seen after her trip to [place] given her symptoms. Pending barium swallow -- may consider EGD/GI consult, nonurgently. Pain control, NPO, antiemetics with good effect -- continue supportive care. Continue IV fluids FEN/GI: NSS + 20meqK @ 125 ml/hr. NPO except meds, awaiting barium swallow, bowel rest. DVT ppx: SCDs, ambulate CODE STATUS: full DISPO: med/surg Other medical conditions: #ADHD -hold vyvanse #history of migraines -takes no NSAIDs -rizatriptan PRN #insomnia -continue zolpidem 5mg qhs (2) Duodenitis: (3) Abdominal pain, left upper quadrant: (4) Nausea, vomiting, and diarrhea: (5) Migraines: Subjective Pt seen and exaimined at the bedside this AM. She is sleeping. Pt reports no pain at this time. Endorses recent history of travel to [place] 3 weeks prior, and feeling increased postprandial fullness. N/V/D only began 2 days ago, reports her boyfriend was also sick with similar illness. -is on daily PPI for h/o "ulcer" diagnosed clinically. Told by PCP to restart prevacid when seen after her trip to [place] given her symptoms. Currently asymptomatic, endorses no further complaints. Review of Systems All systems reviewed & are unremarkable except as noted in HPI & below Physical Exam Vital Signs (Past 24 Hours): Last Vital Signs Temp 37.0 C 10/29/18 07:01 Pulse 76 10/29/18 07:01 Resp 16 10/29/18 07:01 BP 94/60 L 10/29/18 07:01 Pulse Ox 99 10/29/18 07:01
--- NOTE | 2018-10-29 12:33 | Surgery Progress Note ---
Date of Service October 29, 2018 Assessment & Plan (1) Abdominal pain, left upper quadrant: pt is a 43 year-old female who presented to ER with LUQ pain, left chest pain, with nausea and vomiting, IMP: Gastroenteritis, doudenitis, Hiatal hernia Barium swallow showing small hiatal hernia and mild GERD otherwise normal study. Plan: start clear liquid diet if tolerates, advance as tolerated encourage ambulation continue medical management If tolerates advanced diet, okay for discharge from surgical standpoint Should follow-up with PCP in regards to hiatal hernia, GERD, and restarting PPI. Advised conservative approach to GERD/Hiatal hernia treatment with avoiding spicy foods, tomato based products, caffeine/soda, alcohol, sitting upright after eating and elevating head of bed. Dr. Newell has seen pt, agrees with above Subjective feeling much better abdominal pain, nausea, and vomiting have resolved +hungry passing flatus and + liquid bowel movement Physical Exam Vital Signs (Past 24 Hours): Last Vital Signs Temp 37.0 C 10/29/18 07:01 Pulse 76 10/29/18 07:01 Resp 16 10/29/18 07:01 BP 94/60 L 10/29/18 07:01 Pulse Ox 99 10/29/18 07:01 Constitutional: WD/WN, vitals as above no acute distress and not ill appearing Respiratory: normal respiratory effort; no respiratory distress Gastrointestinal (Abdomen): Inspection/Auscultation: abdomen normal to inspection; abdomen not distended Percussion/Palpation: abdomen soft; abdomen nontender, no guarding and abdomen not rigid Skin: no rashes, warm and dry Psychiatric: A+Ox3, euthymic affect Results & Data Laboratory Results 10/29/18 10/29/18 10/29/18 Range/Units 05:54 05:54 05:30 WBC 3.58 L (4.8-10.8) K/uL RBC 3.73 L (4.2-5.4) M/uL Hgb 11.2 L D (12.0-16.0) g/dL Hct 33.2 L (37-47) % MCV 89.0 (80-100) fL MCH 30.0 (25-34) pg MCHC 33.7 (32-36) g/dL RDW Std Deviation 42.9 (36.4-46.3) fL RDW Coeff of Geraldo 13.1 (11.5-14.5) % Plt Count 150 (130-400) K/uL MPV 9.2 (7.4-10.4) fL Immature Gran % (Auto) 0.3 % Neut % (Auto) 57.3 % Lymph % (Auto) 31.8 % [place] % (Auto) 7.8 % Eos % (Auto) 2.8 % Baso % (Auto) 0.0 % Immature Gran # (Auto) 0.01 (0.00-0.02) K/uL Neut # (Auto) 2.05 (1.4-6.5) K/uL Lymph # (Auto) 1.14 L (1.2-3.4) K/uL [place] # (Auto) 0.28 (0.11-0.59) K/uL Eos # (Auto) 0.10 (0-0.5) K/uL Baso # (Auto) 0.00 (0-0.2) K/uL D-Dimer (0-500) ug/L FEU Sodium 141 (136-145) mmol/L Potassium 3.8 D (3.5-5.1) mmol/L Chloride 112 H (98-107) mmol/L Carbon Dioxide 22 (21-32) mmol/L Anion Gap 7.0 (3-11) BUN 7 D (7-18) mg/dl Creatinine 0.53 L D (0.6-1.2) mg/dl Est Cr Clr Drug Dosing 116.9 ml/min Est GFR ( Amer) 132.9 Est GFR (Non-Af Amer) 114.7 BUN/Creatinine Ratio 14.0 (10-20) Glucose 77 (70-99) mg/dl Calcium 7.3 L (8.5-10.1) mg/dl Magnesium (1.8-2.4) mg/dl Total Bilirubin (0.2-1) mg/dl AST (15-37) U/L ALT (12-78) U/L Alkaline Phosphatase (45-117) U/L Troponin I (0-0.045) ng/ml Total Protein (6.4-8.2) gm/dl Albumin (3.4-5.0) gm/dl Globulin (2.5-4.0) gm/dl Albumin/Globulin Ratio (0.9-2) Lipase (73-393) U/L Urine Color Urine Appearance (Clear) Urine pH (4.5-7.5) Ur Specific [place] (1.000-1.030) Urine Protein (Negative) Urine Glucose (UA) (Negative) Urine Ketones (Negative) Urine Blood (Negative) Urine Nitrite (Negative) Urine Bilirubin (Negative) Urine Urobilinogen (Negative) Ur Leukocyte Esterase (Negative) Urine WBC (Auto) (0-5) /hpf Urine RBC (Auto) (0-4) /hpf U Hyaline Cast (Auto) (0-5) /lpf U Epithel Cells (Auto) (0-5) /lpf Urine Bacteria (Auto) (Negative) Ur Renal Epithelial Cell Influenza Type A Ag Neg for Influ A (Neg) Influenza Type B Ag Neg for Influ B (Neg) 10/28/18 10/28/18 10/28/18 Range/Units 17:00 17:00 17:00 WBC 6.73 (4.8-10.8) K/uL RBC 4.86 (4.2-5.4) M/uL Hgb 14.8 (12.0-16.0) g/dL Hct 42.7 (37-47) % MCV 87.9 (80-100) fL MCH 30.5 (25-34) pg MCHC 34.7 (32-36) g/dL RDW Std Deviation 41.8 (36.4-46.3) fL RDW Coeff of Geraldo 13.0 (11.5-14.5) % Plt Count 222 (130-400) K/uL MPV 9.2 (7.4-10.4) fL Immature Gran % (Auto) 0.1 % Neut % (Auto) 77.8 % Lymph % (Auto) 14.4 % [place] % (Auto) 6.5 % Eos % (Auto) 1.2 % Baso % (Auto) 0.0 % Immature Gran # (Auto) 0.01 (0.00-0.02) K/uL Neut # (Auto) 5.23 (1.4-6.5) K/uL Lymph # (Auto) 0.97 L (1.2-3.4) K/uL [place] # (Auto) 0.44 (0.11-0.59) K/uL Eos # (Auto) 0.08 (0-0.5) K/uL Baso # (Auto) 0.00 (0-0.2) K/uL D-Dimer (0-500) ug/L FEU Sodium 137 (136-145) mmol/L Potassium 3.1 L (3.5-5.1) mmol/L Chloride 106 (98-107) mmol/L Carbon Dioxide 26 (21-32) mmol/L Anion Gap 5.0 (3-11) BUN 13 (7-18) mg/dl Creatinine 0.87 (0.6-1.2) mg/dl Est Cr Clr Drug Dosing 71.2 ml/min Est GFR ( Amer) 93.2 Est GFR (Non-Af Amer) 80.5 BUN/Creatinine Ratio 14.6 (10-20) Glucose 81 (70-99) mg/dl Calcium 8.5 (8.5-10.1) mg/dl Magnesium 2.0 (1.8-2.4) mg/dl Total Bilirubin 0.6 (0.2-1) mg/dl AST 17 (15-37) U/L ALT 20 (12-78) U/L Alkaline Phosphatase 55 (45-117) U/L Troponin I < 0.015 (0-0.045) ng/ml Total Protein 6.8 (6.4-8.2) gm/dl Albumin 3.2 L (3.4-5.0) gm/dl Globulin 3.6 (2.5-4.0) gm/dl Albumin/Globulin Ratio 0.9 (0.9-2) Lipase 60 L (73-393) U/L Urine Color Dark Yellow Urine Appearance Clear (Clear) Urine pH 6.0 (4.5-7.5) Ur Specific [place] 1.038 H (1.000-1.030) Urine Protein Trace H (Negative) Urine Glucose (UA) Negative (Negative) Urine Ketones Trace H (Negative) Urine Blood 2+ H (Negative) Urine Nitrite Negative (Negative) Urine Bilirubin Negative (Negative) Urine Urobilinogen Negative (Negative) Ur Leukocyte Esterase Negative (Negative) Urine WBC (Auto) 1-5 (0-5) /hpf Urine RBC (Auto) 10-30 H (0-4) /hpf U Hyaline Cast (Auto) 1-5 (0-5) /lpf U Epithel Cells (Auto) >30 H (0-5) /lpf Urine Bacteria (Auto) 1+ H (Negative) Ur Renal Epithelial Cell Not Reportable Influenza Type A Ag (Neg) Influenza Type B Ag (Neg) 10/28/18 Range/Units 17:00 WBC (4.8-10.8) K/uL RBC (4.2-5.4) M/uL Hgb (12.0-16.0) g/dL Hct (37-47) % MCV (80-100) fL MCH (25-34) pg MCHC (32-36) g/dL RDW Std Deviation (36.4-46.3) fL RDW Coeff of Geraldo (11.5-14.5) % Plt Count (130-400) K/uL MPV (7.4-10.4) fL Immature Gran % (Auto) % Neut % (Auto) % Lymph % (Auto) % [place] % (Auto) % Eos % (Auto) % Baso % (Auto) % Immature Gran # (Auto) (0.00-0.02) K/uL Neut # (Auto) (1.4-6.5) K/uL Lymph # (Auto) (1.2-3.4) K/uL [place] # (Auto) (0.11-0.59) K/uL Eos # (Auto) (0-0.5) K/uL Baso # (Auto) (0-0.2) K/uL D-Dimer 1100 H* (0-500) ug/L FEU Sodium (136-145) mmol/L Potassium (3.5-5.1) mmol/L Chloride (98-107) mmol/L Carbon Dioxide (21-32) mmol/L Anion Gap (3-11) BUN (7-18) mg/dl Creatinine (0.6-1.2) mg/dl Est Cr Clr Drug Dosing ml/min Est GFR ( Amer) Est GFR (Non-Af Amer) BUN/Creatinine Ratio (10-20) Glucose (70-99) mg/dl Calcium (8.5-10.1) mg/dl Magnesium (1.8-2.4) mg/dl Total Bilirubin (0.2-1) mg/dl AST (15-37) U/L ALT (12-78) U/L Alkaline Phosphatase (45-117) U/L Troponin I (0-0.045) ng/ml Total Protein (6.4-8.2) gm/dl Albumin (3.4-5.0) gm/dl Globulin (2.5-4.0) gm/dl Albumin/Globulin Ratio (0.9-2) Lipase (73-393) U/L Urine Color Urine Appearance (Clear) Urine pH (4.5-7.5) Ur Specific [place] (1.000-1.030) Urine Protein (Negative) Urine Glucose (UA) (Negative) Urine Ketones (Negative) Urine Blood (Negative) Urine Nitrite (Negative) Urine Bilirubin (Negative) Urine Urobilinogen (Negative) Ur Leukocyte Esterase (Negative) Urine WBC (Auto) (0-5) /hpf Urine RBC (Auto) (0-4) /hpf U Hyaline Cast (Auto) (0-5) /lpf U Epithel Cells (Auto) (0-5) /lpf Urine Bacteria (Auto) (Negative) Ur Renal Epithelial Cell Influenza Type A Ag (Neg) Influenza Type B Ag (Neg) Diagnostic Findings FL barium swallow CLINICAL HISTORY: hiatal hernia, abdominal pain/vomitingdysphagia COMPARISON STUDY: None FLUOROSCOPY TIME: 1.7 minutes NUMBER OF FLUOROSCOPIC IMAGES: 25 FINDINGS: Patient initiates swallowing function well. Esophagus is normal in course and caliber. There is a small hiatal hernia. Mild findings of gastroesophageal reflux. Barium tablet passed easily to the stomach. IMPRESSION: 1. Small hiatal hernia. 2. Mild gastroesophageal reflux. 3. Otherwise normal study.
--- NOTE | 2018-10-29 14:09 | Discharge Summary ---
Date of Service October 29, 2018 Admission HPI Per Admitting Provider 43-year-old female with a past medical history of cholecystectomy presents with epigastric/chest pain and vomiting. She states that she began to vomit yesterday afternoon and then she woke up this morning with pain right below her sternum and radiating underneath her rib cage, and described it as more predominant on the left side. She says the pain was very severe and was sharp in nature. She says that she has vomited at least 8 times over the past 2 days, nonbloody. She is also had loose stools, nonbloody. She also endorses body aches, joint aches, chills for this period of time. She states that her boyfr iend was sick with a similar viral illness. Patient has had her flu shot this season. She reports recent travel to [place] 3 weeks ago. She reports eating at a buffet on Saturday evening. Principal Diagnosis small hiatal hernia, acute gastroenteritis Discharge Exam Vital signs stable, afebrile while here. GENERAL: Awake, alert to person, place, and time, nontoxic-appearing, in no distress HENT: Normocephalic, atraumatic. Mucus membranes appear moist. EYES: Normal conjunctiva. Sclera non-icteric. EOMI. NECK: Supple. Full range of motion. RESPIRATORY: Clear to auscultation. Normal work of breathing. CARDIAC: Regular rate, normal rhythm. Extremities warm and well perfused, good capillary refill. ABDOMEN: Soft, non-distended. No tenderness to palpation in all four quadrants. No rebound or guarding. No masses. Bowel sounds are normal. NEURO: No focal gross focal motor deficits noted. Sensation in tact. CN II-XII grossly in tact. SKIN: Rash not present. No jaundice noted. Significant lesions not present. PSYCH: Appropriate mood and affect. Cooperative. Exam as done by Carito Hamm MD, Delivery Analyst. Discharge Data Allergies Allergy/AdvReac Type Severity Reaction Status Date / Time Bactrim Allergy Mild RASH Verified 04/25/17 03:01 promethazine Allergy Mild CONVULSIONS Verified 10/28/18 17:31 sulfamethoxazole Allergy Mild RASH Verified 10/28/18 17:31 trimethoprim Allergy Mild RASH Verified 10/28/18 17:31 Consultations 10/28/18 19:37 ED Decision to Admit Stat 10/28/18 23:54 Consult General Surgery Routine Ordered Studies 10/28/18 16:53 US abdomen limited Stat IMPRESSION: No splenomegaly. No left hydronephrosis. 10/28/18 17:57 CT angio chest PE protocol Stat NEGATIVE FOR PE 10/28/18 18:20 CT abd pelvis IV con only Stat CT abd pelvis IV con only CLINICAL HISTORY: 43 years-old Female presenting with severe pain and vomiting, possible perforation or obstruction. TECHNIQUE: Multidetector CT of the abdomen and pelvis was performed after the administration of intravenous contrast. IV contrast: 115 mL of Optiray 320. One or more dose lowering techniques were used consistent with the principles of ALARA (as low as reasonably achievable), including automatic exposure control, mA or kV adjustment to individual patient size, and/or use of iterative reconstruction. COMPARISON: Left upper quadrant ultrasound from earlier the same day. CT DOSE (mGy.cm): The estimated cumulative dose is 486.68 mGy.cm. FINDINGS: [employer] topogram: Cholecystectomy clips. Lung bases: Normal heart size. No pericardial or pleural effusion. No focal infiltrate or nodule at the lung bases. Liver: Normal morphology. No liver lesion. Patent hepatic vasculature. Biliary: Mild biliary ductal prominence likely a reservoir effect in the post cholecystectomy state. Gallbladder surgically absent. Pancreas: Normal. Spleen: Normal. Adrenal glands: Normal. Kidneys and ureters: Excreted contrast likely accounts for the hyperdensities at the renal papillae bilaterally. As a result, limited evaluation for renal calculi. Renal parenchyma normal. No hydronephrosis. Ureters nondilated. No urothelial thickening or evidence to suggest a recently passed calculus. Bladder: Incompletely evaluated secondary to underdistention. Pelvic organs: Uterus and ovaries normal. A tampon is in place. Bowel: Normal appendix. No bowel obstruction. Small sliding type hiatal hernia. Mild apparent wall thickening of the descending and proximal horizontal portion of the duodenum. Peritoneal cavity: Trace free fluid in the pelvis likely physiologic. No free intraperitoneal gas. Lymph nodes: Few scattered subcentimeter mesenteric lymph nodes likely reactive. No pathologically enlarged lymph nodes in abdomen or pelvis. Vasculature: Aorta and IVC patent and normal in caliber. Abdominal wall: Bilateral subpectoral breast implants in place. Musculoskeletal: Normal. IMPRESSION: 1. Apparent wall thickening of the descending and horizontal portions of the duodenum suggests duodenitis, most likely infectious. 2. Small sliding-type hiatal hernia. 3. Postsurgical changes of cholecystectomy. 4. Trace free fluid in the pelvis likely physiologic. Electronically signed by: Acosta Ramirez M.D. 10/28/2018 7:28 PM 10/29/18 10:00 FL barium swallow Routine FL barium swallow CLINICAL HISTORY: hiatal hernia, abdominal pain/vomitingdysphagia COMPARISON STUDY: None FLUOROSCOPY TIME: 1.7 minutes NUMBER OF FLUOROSCOPIC IMAGES: 25 FINDINGS: Patient initiates swallowing function well. Esophagus is normal in course and caliber. There is a small hiatal hernia. Mild findings of gastroesophageal reflux. Barium tablet passed easily to the stomach. IMPRESSION: 1. Small hiatal hernia. 2. Mild gastroesophageal reflux. 3. Otherwise normal study. Hospital Course (1) Hiatal hernia: Pt seen and examined at the bedside this AM. She is sleeping. Pt reports no pain at this time. Endorses recent history of travel to [place] 3 weeks prior, and feeling increased postprandial fullness. N/V/D only began 2 days ago, reports her boyfriend was also sick with similar illness. -is on daily PPI for h/o "ulcer" diagnosed clinically. Told by PCP to restart prevacid when seen after her trip to [place] given her symptoms. Currently asymptomatic, endorses no further complaints. Review of Systems All systems reviewed & are unremarkable except as noted in HPI & below Assessment and plan: 43-year-old female with 2 days of viral GI symptoms presenting with intractable n/v/d and abdominal pain. Abdominal pain 2/2 gastroenteritis/duodenitis complicated by emesis and hiatal hernia seen on CT CT with suggestion of duodenitis, hiatal hernia. No obstruction, no perforation or free air. Pain thought to be secondary of worsening hiatal hernia in setting of frequent vomiting -Pt reports recent history of travel to [place] 3 weeks prior, and feeling increased postprandial fullness. N/V/D only began 2 days ago, reports her boyfriend was also sick with similar illness. -is on daily PPI for h/o "ulcer" diagnosed clinically. Told by PCP to restart prevacid when seen after her trip to [place] given her symptoms. Barium swallow -- shows small hiatal hernia, GERD. IV hydration, pain control, bowel rest and antiemetics with good effect -- advanced diet with no recurrence of symptoms. Seen by general surgery: no indication for surgery at this time. -Recommend continue daily omeprazole on discharge. -BRAT diet for the next few days while she recovers from acute gastroenteri tis. Other medical conditions include: #ADHD -hold vyvanse #history of migraines -takes no NSAIDs -rizatriptan PRN #insomnia -continue zolpidem 5mg qhs (2) Duodenitis: (3) Abdominal pain, left upper quadrant: (4) Nausea, vomiting, and diarrhea: (5) Migraines: Total Time Total Time Spent Total Time Spent (In Minutes): 35 Total Time Includes: Examination of the Patient, Discharge Planning, Medication Reconciliation, Communication With Other Providers and Other Discharge Plan Discharge Items Patient Disposition: Home - Self-Care Reason For Visit: HIATAL HERNIA,DUODENITIS,EPIGASTRIC PAIN/VOMITING Discharge Diagnosis: SMALL HIATAL HERNIA,DUODENITIS,EPIGASTRIC PAIN/VOMITING Condition: Good Discharge Goals: Decrease discomfort, Diagnostic testing, Improve nutritional status and Learn about illness Activity: As commented below Lifting: Gradually increase as tolerated Bathing: No limitations Sexual Activity: When tolerated Exercise/Sports: Gradually increase as tolerated Driving/Machine Use: No limitations Non-emergency contact: Primary Care Provider and Wind Plant Manager Call non-emergency contact if: you have any medication questions, your symptoms worsen, your pain is not controlled, your pain is worsening and your pain is unusual for you Follow-up/Referrals: Stacey Brasher [Primary Care Provider] - Diet: Regular Addtl Provider Instructions: You were admitted due to intractable nausea, vomiting, diarrhea and on CAT scan were found to have a small hiatal hernia. After bowel rest and fluids, your pain has greatly improved. The barium swallow study shows a small hiatal hernia. Your case was evaluated by general surgery and you are not deemed a surgical candidate at this time as your symptoms are controlled. This may need re- evaluated in the future, so please keep follow up appointments with your PCP, and continue your acid reducing medication. Your symptoms were also worsened by an acute gastroenteritis, which is usually caused by a virus. Important to maintain good hydration (aim for at least 50 ozs water per day) and eat foods that won't be too harsh on your stomach "BRAT" diet. Reasons to return to the ED: if your abdominal pain is severe or persistent, you are not able to keep liquids down, fevers (>101), weakness, passing out, or if you are concerned. Be well A Hansel Prescriptions: Continued sumatriptan succinate 25 mg tablet 25 mg PO DIRECTED PRN (Reason: Migraine Headache) RF: 0 rizatriptan 10 mg tablet 10 mg PO DIRECTED PRN (Reason: Migraine Headache) RF: 0 acetaminophen [Tylenol Extra Strength] 500 mg Tablet 1,500 mg PO Q6H PRN (Reason: Pain) RF: 0 esomeprazole magnesium [Nexium] 40 mg Capsule,Delayed Release(Dr/Ec) 40 mg PO QAM RF: 0 zolpidem 5 mg tablet 5 mg PO HS RF: 0 Vyvanse 50 mg capsule 50 mg PO QAM RF: 0 Stand-Alone Forms: Call Back Authorization, [facility]/Other Patient Handouts: Hiatal Hernia Discharge Orders: Discharge Order (Routine); Ordered 10/29/18 Ordered By: Carito Hamm Admission Data Admit Date/Time: 10/28/18 21:04 Attending Provider: Eva Serna Admit Provider: Gaudencio Hamm Primary Care Provider: Stacey Brasher Other Providers: Dimple Segura Chunjie Service: Surgical Services Other Interventions: Discharge Summary Assessment (RN) Last Done: 10/29/18 14:15 Pending Studies at Discharge: No DC Date/Time DO NOT enter until pt leaves facility: 10/29/18 15:14 Supervising Physician Co-Signing Physician Notes Resident Physician Supervision Note: I independently interviewed and examined the patient and verified the fragoso history and physical, reviewed labs and image studies, discussed the case with the resident Dr. Hamm and agree with the findings and care plan. Time spent in discharge 35 min Resident Activity Tracking Resident Involvement: Resident Care Provided Care Provided: Adult Hospital Medicine
== END 2018-10-29 15:14 | disposition home or self-care (01) ==
LOC: ED 16:31 → 3N 16:31 → SUATTDRO 21:04 → 3N 21:48
DX: Z88.1 Allergy status to other antibiotic agents; R19.7 Diarrhea, unspecified; R10.12 Left upper quadrant pain; K44.9 Diaphragmatic hernia without obstruction or gangrene; Z88.8 Allergy status to other drugs, medicaments and biological substances; G47.00 Insomnia, unspecified; K52.9 Noninfective gastroenteritis and colitis, unspecified; F90.9 Attention-deficit hyperactivity disorder, unspecified type; R11.2 Nausea with vomiting, unspecified; K21.9 Gastro-esophageal reflux disease without esophagitis; K29.80 Duodenitis without bleeding